=== PATIENT | female | born 1960 | race Caucasian/White ===

== ENCOUNTER 2018-08-23 17:46 | Observation (INO) ==
[2018-08-23] MEDS ORDERED: 0.9 % Sodium Chloride 1,000 ML IVC ONE (18:03)
--- NOTE | 2018-08-23 18:05 | Emergency Department Note ---
Disposition Clinical Impression: Confusion Pneumonia Qualifiers: Pneumonia type: due to unspecified organism Laterality: right Lung location: u pper lobe of lung Qualified Code(s): J18.1 - Lobar pneumonia, unspecified o rganism Disposition: Still a Patient Condition: Fair Referrals: Jonathan Sam CNP [Primary Care Provider] - Forms: ED Satisfaction Letter Time of Disposition: 20:06 General Adult HPI - General Chief complaint: ED Fall Stated complaint: fall Time Seen by Provider: 08/23/18 17:51 Source: patient, EMS Mode of arrival: EMS Limitations: altered mental status Nursing Notes Reviewed: Yes Vital Signs Reviewed: Yes - History of Present Illness HPI Narrative: Patient is a 58-year-old female who is presenting with altered mental status via EMS. Patient with known history of psychiatric illness and multiple psychiatric medications. On initial evaluation, per EMS a neighbor called the squad when patient reported questionable fall yesterday that was unwitnessed. Patient neighbor then found the patient altered and confused. Patient is unable to provide any history of present illness. She is responding however provides and appropriate responses to questioning. She currently denies any pain. While in the room she makes multiple remarks that the devil is inside of her and that she is having pain all over because the devil is causing her pain. She denies any chest pain or fever or recent illness. She does not know if she has taken any of her medications. She does not recall the fall or any events prior to today. She is alert currently to person and time, she is unaware place. - Related Data Home Medications Medication Instructions Recorded Confirmed Buspirone HCl [Buspar] 15 mg PO TID 07/08/16 08/23/18 Levothyroxine [Synthroid] [place] [address]/08/16 08/23/18 Omeprazole [PriLOSEC] 40 mg PO DAILY 07/08/16 08/23/18 Pravastatin Sodium [Pravachol] 20 mg PO HS 07/08/16 08/23/18 Quetiapine Fumarate [Seroquel] 400 mg PO HS 07/30/18 08/23/18 Tamsulosin HCl [Flomax] 0.4 mg PO DAILY 07/30/18 08/23/18 Venlafaxine [Effexor] 37.5 mg PO TID 07/30/18 08/23/18 clonazePAM [Klonopin] 1 tab PO BID 07/30/18 08/23/18 hydrOXYzine HCl [Hydroxyzine HCl] 50 mg PO TID PRN #0 07/30/18 08/23/18 Prazosin HCl [Minipress] 4 mg PO HS 08/23/18 08/23/18 Topiramate [Topamax] 50 mg PO BID 08/23/18 08/23/18 Previous Rx's Medication Instructions Recorded Ibuprofen [Motrin] 600 mg PO Q8HR #20 tab 07/30/18 Allergies Allergy/AdvReac Type Severity Reaction Status Date / Time haloperidol [From Haldol] Allergy Hives Verified 07/08/16 13:29 All systems ED: reviewed and negative except as stated. Review of Systems: As Per HPI Limitations: ROS unobtainable due to patients medical condition Past Medical History - Past Medical History Medical history: Reports: asthma, COPD, GERD, thyroid disease, TIA, other Surgical history: Reports: cholecystectomy, hysterectomy Psychiatric history: Reports: anxiety, bipolar, depression - Social History Smoking Status: Former smoker Smokeless Tobacco Status: No Alcohol use: Reports: none Drug use: Reports: none Physical Exam - General Limitations: altered mental status General appearance: alert, anxious - Head Head exam: atraumatic, normocephalic - Eye Eye exam: Present: PERRL, EOMI - ENT ENT exam: mucous membranes dry - Neck Neck exam: Present: normal inspection - Chest Chest inspection: Present: normal inspection, symmetric chest wall rise - Respiratory Respiratory exam: Present: normal lung sounds bilaterally - Cardiovascular Cardiovascular exam: Present: regular rate, normal rhythm, normal heart sounds - Abdominal Exam Abdominal exam: Present: soft, Non-Tender. Absent: tenderness, distention, guarding, rebound, rigidity - Neurological Exam Neurological exam: Present: alert - Expanded Neurological Exam Patient oriented to: Present: person, time. Absent: place Speech: Present: fluid speech Cranial nerves: facial sensation (V): Normal, facial palsy (VII): Normal Motor strength - LUE: 5/5 Motor strength - RUE: 5/5 Motor strength - LLE: 5/5 Motor strength - RLE: 5/5 Other motor function: Patient was also 4 extremities, however is difficult to follow examination, she states that the devil is moving her limbs Sensory exam upper extremity: light touch: Normal Sensory exam lower extremity: light touch: Normal Coma Scale Eye Opening: Spontaneous Coma Scale Motor Response: Obeys Commands Coma Scale Verbal Response: Inappropriate Coma Scale Total: 13 - Psychiatric Psychiatric exam: Present: agitated, anxious. Absent: homicidal ideation, suicidal ideation - Skin Skin exam: Present: warm, dry, intact, normal color. Absent: rash, diaphoresis Course Vital Signs Temperature 98.6 F 08/23/18 17:55 Pulse Rate 89 08/23/18 17:55 Respiratory Rate 16 08/23/18 17:55 Blood Pressure 124/80 08/23/18 17:55 O2 Sat by Pulse Oximetry 90 08/23/18 17:55 Temperature 98.6 F 08/23/18 17:55 Pulse Rate 101 08/23/18 18:46 Respiratory Rate 18 08/23/18 18:46 Blood Pressure 120/69 08/23/18 18:46 O2 Sat by Pulse Oximetry 98 08/23/18 18:46 Oxygen Delivery Oxygen Delivery Nasal Cannula Medical Decision Making - MDM Narrative Medical decision making narrative: Patient is a 58-year-old female presenting via EMS for altered mental status. On arrival, patient is a anxious with pressured speech but conversant, however responses are inappropriate and there is clear confusion, patient does not recall the events that brought her here today, per EMS neighbors called for reported unwitnessed fall that occurred yesterday. Patient with multiple psychiatric illnesses, on multiple psychiatric medications, patient in the room currently states devil is inside me". There is no obvious trauma on examination, no cervical tenderness, thoracic or lumbar tenderness, pelvis is stable, patient is a GCS of 13, and age of 0, patient was also ordered extremities, although difficult to perform neurological examination, this is able to be done with patience. Patient is unaware of why she is here currently, not able to contribute to further history. Patient's vitals are within normal limits on arrival. Given concern for altered mental status with unknown baseline history or mentation, altered mental status workup will be completed including CBC, BMP, urinalysis, chest x-ray, troponin, urine drug screen, lactic acid, blood cultures, ammonia. CT the head is to be performed. Patient was also given 1 L normal saline bolus as well as Ativan on arrival due being anxious. CBC, BMP relatively unremarkable. EKG shows no acute ischemic changes. CT of the head shows continued encephalomalacia, in the frontal region, this would explain aggressive behavior, no acute findings were noted, they do request further MRI stroke is suspected. Chest x-ray does show questionable opacification, as patient's history is unknown, we will go ahead and start the patient on Levaquin at this time. Blood cultures have been drawn, lactic acid is also been drawn. On reevaluation, patient is currently calm, sleeping, she is unable to provide further history however at this point in time is more comfortable. Anticipate this patient will be admitted for altered mental status workup, however at this point in time the patient has been signed out to Dr. Jennifer De La Cruz and Dr. Christian Carr. At time of sign off, patient currently has troponin and urinalysis, UDS pending. Please refer to these physicians MDM for further workup and disposition. - Medical Records Medical records reviewed: Yes I reviewed the patient's medical records. - Lab Data Lab results reviewed: Yes I reviewed the patient's lab results. Result diagrams: 08/23/18 18:40 08/23/18 18:40 Lab Results 08/23/18 08/23/18 08/23/18 Range/Units 18:40 18:40 18:40 WBC 6.3 (4.3-11.1) K/mcL RBC 4.34 (3.82-4.97) M/mcL Hgb 12.3 (11.5-15.4) g/dL Hct 38.4 (35.3-44.9) % MCV 88.5 (83.0-100.0) fL MCH 28.3 (28.0-33.3) pg MCHC 32.0 (31.6-35.5) g/dL RDW 13.2 (11.5-14.5) % Plt Count 256 (140-400) K/mcL MPV 9.6 (9.4-12.4) fL Immature Gran % 0.2 (0-4) % Seg Neutrophils % 56.1 % Lymphocytes % 31.7 % Monocytes % 8.7 % Eosinophils % 2.2 % Basophils % 1.1 % Neutrophils # 3.5 (1.6-8.9) K/mcL Lymphocytes # 2.0 (0.6-4.6) K/mcL Monocytes # 0.6 (0.0-1.3) K/mcL Eosinophils # 0.1 (0.0-0.6) K/mcL Basophils # 0.1 (0.0-0.2) K/mcL PT 12.4 H (9.4-12.1) Seconds INR 1.1 APTT 35.4 (26.0-36.0) Seconds Sodium 143 (136-145) mEq/L Potassium 3.4 L (3.5-5.1) mEq/L Chloride 105 (98-107) mEq/L Carbon Dioxide 26 (23-29) mEq/L BUN 13 (6-20) mg/dL Glucose 95 (70-105) mg/dL Calculated Osmolality 296 (280-300) Calcium 9.9 (8.6-10.3) mg/dL Total Bilirubin 0.5 (0.3-1.0) mg/dL Direct Bilirubin 0.2 (0.0-0.2) mg/dL Indirect Bilirubin 0.3 (0.0-1.2) mg/dL AST 14 (13-39) Units/L ALT 25 (7-52) Units/L Alkaline Phosphatase 111 H (34-104) Units/L Ammonia (16-53) mcmol/L Troponin I < 0.03 (< 0.04) ng/mL Serum Total Protein 7.1 (6.4-8.9) g/dL Albumin 4.4 (3.5-5.7) g/dL Globulin 2.7 (2.4-3.5) g/dL Albumin/Globulin Ratio 1.6 (1.1-2.2) TSH 3.926 (0.340-5.600) mcIU/mL Ethyl Alcohol < 10 (Less than 10) mg/dL 08/23/18 Range/Units 18:40 WBC (4.3-11.1) K/mcL RBC (3.82-4.97) M/mcL Hgb (11.5-15.4) g/dL Hct (35.3-44.9) % MCV (83.0-100.0) fL MCH (28.0-33.3) pg MCHC (31.6-35.5) g/dL RDW (11.5-14.5) % Plt Count (140-400) K/mcL MPV (9.4-12.4) fL Immature Gran % (0-4) % Seg Neutrophils % % Lymphocytes % % Monocytes % % Eosinophils % % Basophils % % Neutrophils # (1.6-8.9) K/mcL Lymphocytes # (0.6-4.6) K/mcL Monocytes # (0.0-1.3) K/mcL Eosinophils # (0.0-0.6) K/mcL Basophils # (0.0-0.2) K/mcL PT (9.4-12.1) Seconds INR APTT (26.0-36.0) Seconds Sodium (136-145) mEq/L Potassium (3.5-5.1) mEq/L Chloride (98-107) mEq/L Carbon Dioxide (23-29) mEq/L BUN (6-20) mg/dL Glucose (70-105) mg/dL Calculated Osmolality (280-300) Calcium (8.6-10.3) mg/dL Total Bilirubin (0.3-1.0) mg/dL Direct Bilirubin (0.0-0.2) mg/dL Indirect Bilirubin (0.0-1.2) mg/dL AST (13-39) Units/L ALT (7-52) Units/L Alkaline Phosphatase (34-104) Units/L Ammonia 40 (16-53) mcmol/L Troponin I (< 0.04) ng/mL Serum Total Protein (6.4-8.9) g/dL Albumin (3.5-5.7) g/dL Globulin (2.4-3.5) g/dL Albumin/Globulin Ratio (1.1-2.2) TSH (0.340-5.600) mcIU/mL Ethyl Alcohol (Less than 10) mg/dL - Radiology Data Radiology results reviewed: Yes I reviewed the patient's radiology results. Chest X-Ray 08/23/18 18:03 IMPRESSION: Upper lobe predominant interstitial opacities could represent interstitial pneumonia or edema. D/ / Sunny Dhaliwal MD / Sunny Dhaliwal MD Interpreting Provider: Sunny Dhaliwal MD Head CT 08/23/18 18:03 IMPRESSION: Focal hypodensity in the left frontal lobe may represent encephalomalacia given the history of prior infarct. MRI would be more sensitive to detect acute infarct. D/ / Sunny Dhaliwal MD / Sunny Dhaliwal MD Interpreting Provider: Sunny Dhaliwal MD - EKG Data EKG #1 EKG attestation: Yes I reviewed and interpreted this EKG. EKG results narrative: EKG performed on arrival, patient is a rate of 89 bpm, regular rhythm, normal axis, no ST segment elevation or depression. QTC is within normal limits. Attestation Statement - Attestation Attestation: I, Blaise Melendrez DO, examined this patient [id number] and my medical decision-making was reviewed with Dr. Kulwant Garcia , Resident Physician. I agree with the documented findings, disposition and treatment plan as described except to the extent set forth below. I personally supervised and was present for the amador/critical portions of the procedures completed by the resident documented below. Please see my progress notes for details.
[2018-08-23] MEDS: *HR* LORazepam 2 MG/ML VIAL IVP ONE ×2 (18:44→20:32)
[2018-08-23 19:03] LABS: Basophils # 0.1 K/mcL (0.0-0.2); Basophils % 1.1 %; Eosinophils # 0.1 K/mcL (0.0-0.6); Eosinophils % 2.2 %; Hematocrit 38.4 % (35.3-44.9); Hemoglobin 12.3 g/dL (11.5-15.4); Immature Granulocytes % 0.2 % (0-4); Lymphocytes % 31.7 %; Mean Corpuscular Hemoglobin 28.3 pg (28.0-33.3); Mean Corpuscular Volume 88.5 fL (83.0-100.0); Mean Platelet Volume 9.6 fL (9.4-12.4); Monocytes # 0.6 K/mcL (0.0-1.3); Monocytes % 8.7 %; Neutrophils # 3.5 K/mcL (1.6-8.9); Platelet Count 256 K/mcL (140-400); Red Blood Count 4.34 M/mcL (3.82-4.97); Red Cell Distribution Width 13.2 % (11.5-14.5); Segmented Neutrophils % 56.1 %; White Blood Count 6.3 K/mcL (4.3-11.1)
[2018-08-23 19:12] LABS: INR 1.1; Prothrombin Time 12.4 Seconds (9.4-12.1)
[2018-08-23 19:15] LABS: Activated Partial Thrombo Time 35.4 Seconds (26.0-36.0)
--- NOTE | 2018-08-23 19:21 | Emergency Department Note ---
Disposition Clinical Impression: Confusion, Pneumonia Disposition: Still a Patient Condition: Fair Referrals: Jonathan Sam BUILDING CONSTRUCTION INSPECTOR [Primary Care Provider] - Forms: ED Satisfaction Letter Time of Disposition: 19:24 General Adult HPI - General Chief complaint: ED Fall Stated complaint: fall Time Seen by Provider: 08/23/18 17:51 Source: EMS Limitations: no limitations - History of Present Illness Pain Scale: 5 - Related Data Home Medications Medication Instructions Recorded Confirmed Buspirone HCl [Buspar] 15 mg PO BID 07/08/16 07/30/18 Fluticasone/Vilanterol [Breo 1 puff IH DAILY 07/08/16 07/30/18 Ellipta 200-25 Mcg INH] Levothyroxine [[place]throid] [place] [address]/08/16 07/30/18 Omeprazole [PriLOSEC] 40 mg PO DAILY 07/08/16 07/30/18 Pravastatin Sodium [Pravachol] 20 mg PO HS 07/08/16 07/30/18 hydrOXYzine HCl [Hydroxyzine HCl] 50 mg PO Q6H PRN 07/08/16 07/30/18 Atarax 50 mg PO TID 07/30/18 07/30/18 Prazosin [Minipress] 2 mg PO HS 07/30/18 07/30/18 Quetiapine Fumarate [Seroquel] 1 tab PO HS 07/30/18 07/30/18 Tamsulosin HCl [Flomax] 0.4 mg PO DAILY 07/30/18 07/30/18 Venlafaxine [Effexor] 37.5 mg PO DAILY 07/30/18 07/30/18 clonazePAM [Klonopin] 1 tab PO BID 07/30/18 07/30/18 Previous Rx's Medication Instructions Recorded Ibuprofen [Motrin] 600 mg PO Q8HR #20 tab 07/30/18 Allergies Allergy/AdvReac Type Severity Reaction Status Date / Time haloperidol [From Haldol] Allergy Hives Verified 07/08/16 13:29 Past Medical History - Past Medical History Medical history: Reports: asthma, COPD, GERD, thyroid disease, TIA, other Surgical history: Reports: cholecystectomy, hysterectomy Psychiatric history: Reports: anxiety, bipolar, depression - Social History Smoking Status: Former smoker Smokeless Tobacco Status: No Alcohol use: Reports: none Drug use: Reports: none Physical Exam - General Limitations: no limitations General appearance: anxious Course Vital Signs Temperature 98.6 F 08/23/18 17:55 Pulse Rate 89 08/23/18 17:55 Respiratory Rate 16 08/23/18 17:55 Blood Pressure 124/80 08/23/18 17:55 O2 Sat by Pulse Oximetry 90 08/23/18 17:55 Temperature 98.6 F 08/23/18 17:55 Pulse Rate 101 08/23/18 18:46 Respiratory Rate 18 08/23/18 18:46 Blood Pressure 120/69 08/23/18 18:46 O2 Sat by Pulse Oximetry 98 08/23/18 18:46 Oxygen Delivery Oxygen Delivery Nasal Cannula Medical Decision Making - Lab Data Result diagrams: 08/23/18 18:40 Lab Results 08/23/18 08/23/18 08/23/18 Range/Units 18:40 18:40 18:40 WBC 6.3 (4.3-11.1) K/mcL RBC 4.34 (3.82-4.97) M/mcL Hgb 12.3 (11.5-15.4) g/dL Hct 38.4 (35.3-44.9) % MCV 88.5 (83.0-100.0) fL MCH 28.3 (28.0-33.3) pg MCHC 32.0 (31.6-35.5) g/dL RDW 13.2 (11.5-14.5) % Plt Count 256 (140-400) K/mcL MPV 9.6 (9.4-12.4) fL Immature Gran % 0.2 (0-4) % Seg Neutrophils % 56.1 % Lymphocytes % 31.7 % Monocytes % 8.7 % Eosinophils % 2.2 % Basophils % 1.1 % Neutrophils # 3.5 (1.6-8.9) K/mcL Lymphocytes # 2.0 (0.6-4.6) K/mcL Monocytes # 0.6 (0.0-1.3) K/mcL Eosinophils # 0.1 (0.0-0.6) K/mcL Basophils # 0.1 (0.0-0.2) K/mcL PT 12.4 H (9.4-12.1) Seconds INR 1.1 APTT 35.4 (26.0-36.0) Seconds Ammonia 40 (16-53) mcmol/L Attestation Statement - Attestation Attestation: I, Blaise Melendrez DO, examined this patient [id number] and my medical decision-making was reviewed with Dr. Kulwant Garcia , Resident Physician. I agree with the documented findings, disposition and treatment plan as described except to the extent set forth below. I personally supervised and was present for the amador/critical portions of the procedures completed by the resident documented below. Please see my progress notes for details. 58-year-old female presents emergency room for evaluation of some aspect of the fall. Patient has a psychiatric history and has not been taking her meds. A third green party family member called the squad bring out to the emergency room. Patient is unable to answer questions on arrival here. She is confused and not able to fall simple commands. She does not state it is and what year it is but otherwise is unable to answer questions appropriately. Vital signs reviewed and are stable. Patient is denying any other complaints or symptoms on arrival here. Her head is atraumatic. Pupils are equal and reactive. Oropharynx is patent. Trachea is midline. She has no signs of trauma to the head. Oropharynx is patent. Lungs are clear. Heart is regular. Abdomen is soft. Extremities are normal no signs of rash, lesion or abnormality. Patient is denying any complaints including chest pain shortness of breath fevers chills. She denies any nausea vomiting or diarrhea. She does not have any headache or vision change. Patient was provided medication to help with her anxiety and distress. Screening labs including CT imaging of the head chest x-ray CBC chemistry troponin electrolytes drug screen for potential drugs of abuse as well as EKG will be collected. Disposition will be determined after full workup and treatment course I been established. Patient will be signed out to the overnight physician for continuation of care secondary to the inability to complete the full workup at this time. EKG was reviewed by myself and documented resident physician's note. See detailed documentation the physical exam, medical intervention, medical decision-making and disposition in the resident physician's documentation. No critical care applied. Patient will be signed out detail to Dr. Carr for stabilization management and potential admission. 1900 Patient is found to have potential pneumonia. Patient had blood cultures lactic acid and antibiotics ordered. Management will be completed by other provider.
[2018-08-23] MEDS ORDERED: levoFLOXacin 750 MG/150 ML 750 MG/150 ML BAG IVPB ONE (19:25)
[2018-08-23 19:26] LABS: Alanine Aminotransferase 25 Units/L (7-52); Albumin 4.4 g/dL (3.5-5.7); Albumin/Globulin Ratio 1.6 (1.1-2.2); Alkaline Phosphatase 111 Units/L (34-104); Aspartate Amino Transferase 14 Units/L (13-39); Bilirubin,Direct 0.2 mg/dL (0.0-0.2); Bilirubin,Indirect 0.3 mg/dL (0.0-1.2); Bilirubin,Total 0.5 mg/dL (0.3-1.0); Blood Urea Nitrogen 13 mg/dL (6-20); Calcium 9.9 mg/dL (8.6-10.3); Carbon Dioxide 26 mEq/L (23-29); Chloride 105 mEq/L (98-107); Ethanol < 10 mg/dL (Less than 10); Globulin 2.7 g/dL (2.4-3.5); Glucose 95 mg/dL (70-105); Osmolality,Calculated 296 (280-300); Potassium 3.4 mEq/L (3.5-5.1); Sodium 143 mEq/L (136-145); Total Protein 7.1 g/dL (6.4-8.9); Troponin I < 0.03 ng/mL (< 0.04)
[2018-08-23 19:40] LABS: Thyroid Stimulating Hormone 3.926 mcIU/mL (0.340-5.600)
--- NOTE | 2018-08-23 19:43 | Emergency Department Note ---
Disposition Clinical Impression: Confusion Pneumonia Qualifiers: Pneumonia type: due to unspecified organism Laterality: right Lung location: u pper lobe of lung Qualified Code(s): J18.1 - Lobar pneumonia, unspecified o rganism Disposition: Still a Patient Condition: Fair Referrals: Jonathan Sam SALES LEDGER ADMINISTRATOR [Primary Care Provider] - Forms: ED Satisfaction Letter Time of Disposition: 19:43 General Adult HPI - General Chief complaint: ED Fall Stated complaint: fall Time Seen by Provider: 08/23/18 17:51 Source: EMS Limitations: altered mental status Nursing Notes Reviewed: Yes Vital Signs Reviewed: Yes - History of Present Illness HPI Narrative: Attestation note: Patient was seen with the emergency medicine resident/nurse practitioner/physician assistant corporate controller/transitional resident/medical student: Dr. Ashly De La Cruz. I was present for the significant portions of the performance and interpretation of procedures and EKGs. I have personally performed a face to face evaluation on this patient. I have reviewed and agree with history and physical examination patient management and disposition. Patient was signed out by the departing emergency medicine attending and resident team of Dr. Melendrez and Dr. Garcia. Please see copy their notes for details of the history and physical examination examination evaluation management and disposition to the point of sign out at 1942. Briefly patient has a psychiatric disorder is unable to give any history fell EMS was called by third-alliance party she was brought in unable to answer any questions definitively no external signs of trauma no localizing signs patient had a head CT which showed encephalomalacia which is old chest x-ray was stress pneumonia which is being treated patient labs are within baseline are within normal limits. Waiting for urine drug screen and screening labs. Patient will be admitted. Admission disposition pending Pain Scale: 5 - Related Data Home Medications Medication Instructions Recorded Confirmed Buspirone HCl [Buspar] 15 mg PO BID 07/08/16 08/23/18 Fluticasone/Vilanterol [Breo 1 puff IH DAILY 07/08/16 08/23/18 Ellipta 200-25 Mcg INH] Levothyroxine [[place]th[place]] [place] [address]/08/16 08/23/18 Omeprazole [PriLOSEC] 40 mg PO DAILY 07/08/16 08/23/18 Pravastatin Sodium [Pravachol] 20 mg PO HS 07/08/16 08/23/18 hydrOXYzine HCl [Hydroxyzine HCl] 50 mg PO Q6H PRN 07/08/16 08/23/18 Atarax 50 mg PO TID 07/30/18 08/23/18 Prazosin [Minipress] 2 mg PO HS 07/30/18 08/23/18 Quetiapine Fumarate [Seroquel] 1 tab PO HS 07/30/18 08/23/18 Tamsulosin HCl [Flomax] 0.4 mg PO DAILY 07/30/18 08/23/18 Venlafaxine [Effexor] 37.5 mg PO DAILY 07/30/18 08/23/18 clonazePAM [Klonopin] 1 tab PO BID 07/30/18 08/23/18 Topiramate 50 mg PO BID 08/23/18 08/23/18 Previous Rx's Medication Instructions Recorded Ibuprofen [Motrin] 600 mg PO Q8HR #20 tab 07/30/18 Allergies Allergy/AdvReac Type Severity Reaction Status Date / Time haloperidol [From Haldol] Allergy Hives Verified 07/08/16 13:29 Past Medical History - Past Medical History Medical history: Reports: asthma, COPD, GERD, thyroid disease, TIA, other Surgical history: Reports: cholecystectomy, hysterectomy Psychiatric history: Reports: anxiety, bipolar, depression - Social History Smoking Status: Former smoker Smokeless Tobacco Status: No Alcohol use: Reports: none Drug use: Reports: none Physical Exam - General Limitations: no limitations General appearance: anxious Course Vital Signs Temperature 98.6 F 08/23/18 17:55 Pulse Rate 89 08/23/18 17:55 Respiratory Rate 16 08/23/18 17:55 Blood Pressure 124/80 08/23/18 17:55 O2 Sat by Pulse Oximetry 90 08/23/18 17:55 Temperature 98.6 F 08/23/18 17:55 Pulse Rate 101 08/23/18 18:46 Respiratory Rate 18 08/23/18 18:46 Blood Pressure 120/69 08/23/18 18:46 O2 Sat by Pulse Oximetry 98 08/23/18 18:46 Oxygen Delivery Oxygen Delivery Nasal Cannula Medical Decision Making - Lab Data Result diagrams: 08/23/18 18:40 08/23/18 18:40 Lab Results 08/23/18 08/23/18 08/23/18 Range/Units 18:40 18:40 18:40 WBC 6.3 (4.3-11.1) K/mcL RBC 4.34 (3.82-4.97) M/mcL Hgb 12.3 (11.5-15.4) g/dL Hct 38.4 (35.3-44.9) % MCV 88.5 (83.0-100.0) fL MCH 28.3 (28.0-33.3) pg MCHC 32.0 (31.6-35.5) g/dL RDW 13.2 (11.5-14.5) % Plt Count 256 (140-400) K/mcL MPV 9.6 (9.4-12.4) fL Immature Gran % 0.2 (0-4) % Seg Neutrophils % 56.1 % Lymphocytes % 31.7 % Monocytes % 8.7 % Eosinophils % 2.2 % Basophils % 1.1 % Neutrophils # 3.5 (1.6-8.9) K/mcL Lymphocytes # 2.0 (0.6-4.6) K/mcL Monocytes # 0.6 (0.0-1.3) K/mcL Eosinophils # 0.1 (0.0-0.6) K/mcL Basophils # 0.1 (0.0-0.2) K/mcL PT 12.4 H (9.4-12.1) Seconds INR 1.1 APTT 35.4 (26.0-36.0) Seconds Sodium 143 (136-145) mEq/L Potassium 3.4 L (3.5-5.1) mEq/L Chloride 105 (98-107) mEq/L Carbon Dioxide 26 (23-29) mEq/L BUN 13 (6-20) mg/dL Glucose 95 (70-105) mg/dL Calculated Osmolality 296 (280-300) Calcium 9.9 (8.6-10.3) mg/dL Total Bilirubin 0.5 (0.3-1.0) mg/dL Direct Bilirubin 0.2 (0.0-0.2) mg/dL Indirect Bilirubin 0.3 (0.0-1.2) mg/dL AST 14 (13-39) Units/L ALT 25 (7-52) Units/L Alkaline Phosphatase 111 H (34-104) Units/L Ammonia (16-53) mcmol/L Troponin I < 0.03 (< 0.04) ng/mL Serum Total Protein 7.1 (6.4-8.9) g/dL Albumin 4.4 (3.5-5.7) g/dL Globulin 2.7 (2.4-3.5) g/dL Albumin/Globulin Ratio 1.6 (1.1-2.2) TSH 3.926 (0.340-5.600) mcIU/mL Ethyl Alcohol < 10 (Less than 10) mg/dL 08/23/18 Range/Units 18:40 WBC (4.3-11.1) K/mcL RBC (3.82-4.97) M/mcL Hgb (11.5-15.4) g/dL Hct (35.3-44.9) % MCV (83.0-100.0) fL MCH (28.0-33.3) pg MCHC (31.6-35.5) g/dL RDW (11.5-14.5) % Plt Count (140-400) K/mcL MPV (9.4-12.4) fL Immature Gran % (0-4) % Seg Neutrophils % % Lymphocytes % % Monocytes % % Eosinophils % % Basophils % % Neutrophils # (1.6-8.9) K/mcL Lymphocytes # (0.6-4.6) K/mcL Monocytes # (0.0-1.3) K/mcL Eosinophils # (0.0-0.6) K/mcL Basophils # (0.0-0.2) K/mcL PT (9.4-12.1) Seconds INR APTT (26.0-36.0) Seconds Sodium (136-145) mEq/L Potassium (3.5-5.1) mEq/L Chloride (98-107) mEq/L Carbon Dioxide (23-29) mEq/L BUN (6-20) mg/dL Glucose (70-105) mg/dL Calculated Osmolality (280-300) Calcium (8.6-10.3) mg/dL Total Bilirubin (0.3-1.0) mg/dL Direct Bilirubin (0.0-0.2) mg/dL Indirect Bilirubin (0.0-1.2) mg/dL AST (13-39) Units/L ALT (7-52) Units/L Alkaline Phosphatase (34-104) Units/L Ammonia 40 (16-53) mcmol/L Troponin I (< 0.04) ng/mL Serum Total Protein (6.4-8.9) g/dL Albumin (3.5-5.7) g/dL Globulin (2.4-3.5) g/dL Albumin/Globulin Ratio (1.1-2.2) TSH (0.340-5.600) mcIU/mL Ethyl Alcohol (Less than 10) mg/dL
--- NOTE | 2018-08-23 19:43 | Emergency Department Note ---
Disposition Clinical Impression: Confusion Pneumonia Qualifiers: Pneumonia type: due to unspecified organism Laterality: right Lung location: u pper lobe of lung Qualified Code(s): J18.1 - Lobar pneumonia, unspecified o rganism Disposition: Admitted As Inpatient Condition: Fair Referrals: Jonathan Sam [employer] [Primary Care Provider] - Forms: ED Satisfaction Letter Time of Disposition: 21:02 General Adult HPI - General Chief complaint: ED Fall Stated complaint: fall Time Seen by Provider: 08/23/18 17:51 Source: EMS Limitations: no limitations Nursing Notes Reviewed: Yes Vital Signs Reviewed: Yes - History of Present Illness HPI Narrative: Patient was taken in signout from day physicians, Drs. Garcia and Aneesh. Please see their detailed documentation for full history of present illness, physical exam, review of systems. Ensure the patient is a 58-year-old female with history of multiple psychiatric disorders who was sent for IM home by a third libertarian due to altered mental status and reported fall. Pain Scale: 5 - Related Data Home Medications Medication Instructions Recorded Confirmed Buspirone HCl [Buspar] 15 mg PO TID 07/08/16 08/23/18 Levothyroxine [Synthroid] 50 mcg PO 0630 07/08/16 08/23/18 Omeprazole [PriLOSEC] 40 mg PO DAILY 07/08/16 08/23/18 Pravastatin Sodium [Pravachol] 20 mg PO HS 07/08/16 08/23/18 Quetiapine Fumarate [Seroquel] 400 mg PO HS 07/30/18 08/23/18 Tamsulosin HCl [Flomax] 0.4 mg PO DAILY 07/30/18 08/23/18 Venlafaxine [Effexor] 37.5 mg PO TID 07/30/18 08/23/18 clonazePAM [Klonopin] 1 tab PO BID 07/30/18 08/23/18 hydrOXYzine HCl [Hydroxyzine HCl] 50 mg PO TID PRN #0 07/30/18 08/23/18 Prazosin HCl [Minipress] 4 mg PO HS 08/23/18 08/23/18 Topiramate [Topamax] 50 mg PO BID 08/23/18 08/23/18 Previous Rx's Medication Instructions Recorded Ibuprofen [Motrin] 600 mg PO Q8HR #20 tab 07/30/18 Allergies Allergy/AdvReac Type Severity Reaction Status Date / Time haloperidol [From Haldol] Allergy Hives Verified 07/08/16 13:29 Past Medical History - Past Medical History Medical history: Reports: asthma, COPD, GERD, thyroid disease, TIA, other Surgical history: Reports: cholecystectomy, hysterectomy Psychiatric history: Reports: anxiety, bipolar, depression - Social History Smoking Status: Former smoker Smokeless Tobacco Status: No Alcohol use: Reports: none Drug use: Reports: none Physical Exam - General Limitations: no limitations General appearance: anxious, other (intermittent tongue movements) - Head Head exam: atraumatic, normocephalic - Neurological Exam Neurological exam: Present: alert - Expanded Neurological Exam Speech: Present: fluid speech (tangential, not goal oriented) - Psychiatric Psychiatric exam: Present: anxious, flat affect Course - Reevaluation(s) Reevaluation #1: Patient evaluated at bedside. The patient has linear speech but is tangential and is not goal oriented. She complains of no areas of pain at this time. She is alert and cooperative. Time: 20:26 Vital Signs Temperature 98.6 F 08/23/18 17:55 Pulse Rate 89 08/23/18 17:55 Respiratory Rate 16 08/23/18 17:55 Blood Pressure 124/80 08/23/18 17:55 O2 Sat by Pulse Oximetry 90 08/23/18 17:55 Temperature 98.6 F 08/23/18 17:55 Pulse Rate 91 08/23/18 20:39 Respiratory Rate 21 08/23/18 20:39 Blood Pressure 99/74 08/23/18 20:39 O2 Sat by Pulse Oximetry 100 08/23/18 20:39 Oxygen Delivery Oxygen Delivery Nasal Cannula Medical Decision Making - MDM Narrative Medical decision making narrative: 58-year-old female taken in sign out from day time physicians, please see their documentation for MDM prior to signout. I short, the patient had a unwitnessed fall and was brought to the emergency department via EMS per the neighbor's report. She has no focal deficits but her speech is tangential and not goal oriented. She was signed out pending results of her urinalysis, urine drug screen, lactate. Patient has no urinary tract infection. Her urine drug screen is negative. Patient is intermittently agitated and gets up and moves around out of bed and she has therefore had a repeat dose of Ativan. Discussed case with on-call hospitalist Dr. Zafar who agrees with plan for admission and accepts the patient to the inpatient service. Patient agrees with and understands course of treatment plan including plan for admission. All questions answered. - Medical Records Medical records reviewed: Yes I reviewed the patient's medical records. - Lab Data Lab results reviewed: Yes I reviewed the patient's lab results. Result diagrams: 08/23/18 18:40 08/23/18 18:40 Lab Results 08/23/18 08/23/18 08/23/18 Range/Units 18:40 18:40 18:40 WBC 6.3 (4.3-11.1) K/mcL RBC 4.34 (3.82-4.97) M/mcL Hgb 12.3 (11.5-15.4) g/dL Hct 38.4 (35.3-44.9) % MCV 88.5 (83.0-100.0) fL MCH 28.3 (28.0-33.3) pg MCHC 32.0 (31.6-35.5) g/dL RDW 13.2 (11.5-14.5) % Plt Count 256 (140-400) K/mcL MPV 9.6 (9.4-12.4) fL Immature Gran % 0.2 (0-4) % Seg Neutrophils % 56.1 % Lymphocytes % 31.7 % Monocytes % 8.7 % Eosinophils % 2.2 % Basophils % 1.1 % Neutrophils # 3.5 (1.6-8.9) K/mcL Lymphocytes # 2.0 (0.6-4.6) K/mcL Monocytes # 0.6 (0.0-1.3) K/mcL Eosinophils # 0.1 (0.0-0.6) K/mcL Basophils # 0.1 (0.0-0.2) K/mcL PT 12.4 H (9.4-12.1) Seconds INR 1.1 APTT 35.4 (26.0-36.0) Seconds Sodium 143 (136-145) mEq/L Potassium 3.4 L (3.5-5.1) mEq/L Chloride 105 (98-107) mEq/L Carbon Dioxide 26 (23-29) mEq/L BUN 13 (6-20) mg/dL Creatinine 0.95 (0.60-1.20) mg/dL Est GFR ( Amer) > 60 (> 60) Est GFR (Non-Af Amer) > 60 (> 60) BUN/Creatinine Ratio 14 (6-26) Glucose 95 (70-105) mg/dL Calculated Osmolality 296 (280-300) Lactic Acid (0.5-2.2) mmol/L Calcium 9.9 (8.6-10.3) mg/dL Total Bilirubin 0.5 (0.3-1.0) mg/dL Direct Bilirubin 0.2 (0.0-0.2) mg/dL Indirect Bilirubin 0.3 (0.0-1.2) mg/dL AST 14 (13-39) Units/L ALT 25 (7-52) Units/L Alkaline Phosphatase 111 H (34-104) Units/L Ammonia (16-53) mcmol/L Troponin I < 0.03 (< 0.04) ng/mL Serum Total Protein 7.1 (6.4-8.9) g/dL Albumin 4.4 (3.5-5.7) g/dL Globulin 2.7 (2.4-3.5) g/dL Albumin/Globulin Ratio 1.6 (1.1-2.2) TSH 3.926 (0.340-5.600) mcIU/mL Urine Color (Yellow) Urine Clarity (Clear) Urine pH (5.0-8.0) pH Units Ur Specific [place] (1.010-1.025) Urine Protein (Neg-Trace) mg/dL Urine Glucose (UA) (Normal) mg/dL Urine Ketones (Negative) mg/dL Urine Blood (Negative) Urine Nitrite (Negative) Urine Bilirubin (Negative) Urine Urobilinogen (Normal) mg/dL Ur Leukocyte Esterase (Negative) Urine Microscopic RBC (0-3) per hpf Urine Microscopic WBC (0-3) per hpf Ur Squamous Epith Cells (None-Few) per lpf Urine Bacteria (None-Few) per hpf Hyaline Casts (None-Few) per lpf Ur Culture Indicated? (NO) Urine Opiates Screen (Wsofld=395) ng/mL Ur Barbiturates Screen (Znqqgj=062) ng/mL Ur Phencyclidine Scrn (Cutoff=25) ng/mL Ur Amphetamines Screen (Bhgadb=6395) ng/mL U Benzodiazepines Scrn (Xhljoe=308) ng/mL Urine Cocaine Screen (Cutoff= 300) ng/mL U Marijuana (THC) Screen (Cutoff = 50) ng/mL Ur Drug Screen Interp Ethyl Alcohol < 10 (Less than 10) mg/dL 08/23/18 08/23/18 08/23/18 Range/Units 18:40 19:46 19:53 WBC (4.3-11.1) K/mcL RBC (3.82-4.97) M/mcL Hgb (11.5-15.4) g/dL Hct (35.3-44.9) % MCV (83.0-100.0) fL MCH (28.0-33.3) pg MCHC (31.6-35.5) g/dL RDW (11.5-14.5) % Plt Count (140-400) K/mcL MPV (9.4-12.4) fL Immature Gran % (0-4) % Seg Neutrophils % % Lymphocytes % % Monocytes % % Eosinophils % % Basophils % % Neutrophils # (1.6-8.9) K/mcL Lymphocytes # (0.6-4.6) K/mcL Monocytes # (0.0-1.3) K/mcL Eosinophils # (0.0-0.6) K/mcL Basophils # (0.0-0.2) K/mcL PT (9.4-12.1) Seconds INR APTT (26.0-36.0) Seconds Sodium (136-145) mEq/L Potassium (3.5-5.1) mEq/L Chloride (98-107) mEq/L Carbon Dioxide (23-29) mEq/L BUN (6-20) mg/dL Creatinine (0.60-1.20) mg/dL Est GFR ( Amer) (> 60) Est GFR (Non-Af Amer) (> 60) BUN/Creatinine Ratio (6-26) Glucose (70-105) mg/dL Calculated Osmolality (280-300) Lactic Acid 0.8 (0.5-2.2) mmol/L Calcium (8.6-10.3) mg/dL Total Bilirubin (0.3-1.0) mg/dL Direct Bilirubin (0.0-0.2) mg/dL Indirect Bilirubin (0.0-1.2) mg/dL AST (13-39) Units/L ALT (7-52) Units/L Alkaline Phosphatase (34-104) Units/L Ammonia 40 (16-53) mcmol/L Troponin I (< 0.04) ng/mL Serum Total Protein (6.4-8.9) g/dL Albumin (3.5-5.7) g/dL Globulin (2.4-3.5) g/dL Albumin/Globulin Ratio (1.1-2.2) TSH (0.340-5.600) mcIU/mL Urine Color Yellow (Yellow) Urine Clarity Clear (Clear) Urine pH 5.5 (5.0-8.0) pH Units Ur Specific [place] 1.007 L (1.010-1.025) Urine Protein Negative (Neg-Trace) mg/dL Urine Glucose (UA) Normal (Normal) mg/dL Urine Ketones Negative (Negative) mg/dL Urine Blood Negative (Negative) Urine Nitrite Negative (Negative) Urine Bilirubin Negative (Negative) Urine Urobilinogen Normal (Normal) mg/dL Ur Leukocyte Esterase Trace H (Negative) Urine Microscopic RBC 0-3 (0-3) per hpf Urine Microscopic WBC 0-3 (0-3) per hpf Ur Squamous Epith Cells Many H (None-Few) per lpf Urine Bacteria None Seen (None-Few) per hpf Hyaline Casts Few (None-Few) per lpf Ur Culture Indicated? YES A (NO) Urine Opiates Screen (Ebysib=805) ng/mL Ur Barbiturates Screen (Wrrqen=313) ng/mL Ur Phencyclidine Scrn (Cutoff=25) ng/mL Ur Amphetamines Screen (Ekfdtu=9973) ng/mL U Benzodiazepines Scrn (Vazstk=203) ng/mL Urine Cocaine Screen (Cutoff= 300) ng/mL U Marijuana (THC) Screen (Cutoff = 50) ng/mL Ur Drug Screen Interp Ethyl Alcohol (Less than 10) mg/dL 08/23/18 Range/Units 19:53 WBC (4.3-11.1) K/mcL RBC (3.82-4.97) M/mcL Hgb (11.5-15.4) g/dL Hct (35.3-44.9) % MCV (83.0-100.0) fL MCH (28.0-33.3) pg MCHC (31.6-35.5) g/dL RDW (11.5-14.5) % Plt Count (140-400) K/mcL MPV (9.4-12.4) fL Immature Gran % (0-4) % Seg Neutrophils % % Lymphocytes % % Monocytes % % Eosinophils % % Basophils % % Neutrophils # (1.6-8.9) K/mcL Lymphocytes # (0.6-4.6) K/mcL Monocytes # (0.0-1.3) K/mcL Eosinophils # (0.0-0.6) K/mcL Basophils # (0.0-0.2) K/mcL PT (9.4-12.1) Seconds INR APTT (26.0-36.0) Seconds Sodium (136-145) mEq/L Potassium (3.5-5.1) mEq/L Chloride (98-107) mEq/L Carbon Dioxide (23-29) mEq/L BUN (6-20) mg/dL Creatinine (0.60-1.20) mg/dL Est GFR ( Amer) (> 60) Est GFR (Non-Af Amer) (> 60) BUN/Creatinine Ratio (6-26) Glucose (70-105) mg/dL Calculated Osmolality (280-300) Lactic Acid (0.5-2.2) mmol/L Calcium (8.6-10.3) mg/dL Total Bilirubin (0.3-1.0) mg/dL Direct Bilirubin (0.0-0.2) mg/dL Indirect Bilirubin (0.0-1.2) mg/dL AST (13-39) Units/L ALT (7-52) Units/L Alkaline Phosphatase (34-104) Units/L Ammonia (16-53) mcmol/L Troponin I (< 0.04) ng/mL Serum Total Protein (6.4-8.9) g/dL Albumin (3.5-5.7) g/dL Globulin (2.4-3.5) g/dL Albumin/Globulin Ratio (1.1-2.2) TSH (0.340-5.600) mcIU/mL Urine Color (Yellow) Urine Clarity (Clear) Urine pH (5.0-8.0) pH Units Ur Specific [place] (1.010-1.025) Urine Protein (Neg-Trace) mg/dL Urine Glucose (UA) (Normal) mg/dL Urine Ketones (Negative) mg/dL Urine Blood (Negative) Urine Nitrite (Negative) Urine Bilirubin (Negative) Urine Urobilinogen (Normal) mg/dL Ur Leukocyte Esterase (Negative) Urine Microscopic RBC (0-3) per hpf Urine Microscopic WBC (0-3) per hpf Ur Squamous Epith Cells (None-Few) per lpf Urine Bacteria (None-Few) per hpf Hyaline Casts (None-Few) per lpf Ur Culture Indicated? (NO) Urine Opiates Screen Negative (Hyqboa=224) ng/mL Ur Barbiturates Screen Negative (Pnlcww=377) ng/mL Ur Phencyclidine Scrn Negative (Cutoff=25) ng/mL Ur Amphetamines Screen Negative (Dpewlb=0261) ng/mL U Benzodiazepines Scrn Negative (Jawocc=390) ng/mL Urine Cocaine Screen Negative (Cutoff= 300) ng/mL U Marijuana (THC) Screen Negative (Cutoff = 50) ng/mL Ur Drug Screen Interp See Below Ethyl Alcohol (Less than 10) mg/dL - Radiology Data Radiology results reviewed: Yes I reviewed the patient's radiology results. Chest X-Ray 08/23/18 18:03 IMPRESSION: Upper lobe predominant interstitial opacities could represent interstitial pneumonia or edema. D/ / Sunny Dhaliwal MD / Sunny Dhaliwal MD Interpreting Provider: Sunny Dhaliwal MD Head CT 08/23/18 18:03 IMPRESSION: Focal hypodensity in the left frontal lobe may represent encephalomalacia given the history of prior infarct. MRI would be more sensitive to detect acute infarct. D/ / Sunny Dhaliwal MD / Sunny Dhaliwal MD Interpreting Provider: Sunny Dhaliwal MD
[2018-08-23 20:04] LABS: Bilirubin,Urine Negative (Negative); Blood,Urine Negative (Negative); Clarity,Urine Clear (Clear); Color,Urine Yellow (Yellow); Glucose,Urine (UA) Normal (Normal); Ketones,Urine Negative (Negative); Leukocyte Esterase,Urine Trace (Negative); Nitrite,Urine Negative (Negative); PH,Urine 5.5 pH Units (5.0-8.0); Protein,Urine Negative (Neg-Trace); Specific Gravity,Urine 1.007 (1.010-1.025); Urobilinogen,Urine Normal (Normal)
[2018-08-23 20:05] LABS: Bacteria,Urine None Seen per hpf (None-Few); Hyaline Casts,Urine Few per lpf (None-Few); RBC,Urine 0-3 per hpf (0-3); Squamous Epithelial Cell,Urine Many per lpf (None-Few); WBC,Urine 0-3 per hpf (0-3)
[2018-08-23 20:09] LABS: BUN/Creatinine Ratio 14 (6-26); eGFR For African Americans > 60 (> 60); eGFR For Non-African Americans > 60 (> 60)
[2018-08-23 20:14] LABS: Amphetamine Screen,Urine Negative ng/mL (Cutoff=1000); Barbiturate Screen,Urine Negative ng/mL (Cutoff=200); Benzodiazepines Screen,Urine Negative ng/mL (Cutoff=200); Cannabinoid Screen,Urine Negative ng/mL (Cutoff = 50); Cocaine Screen,Urine Negative ng/mL (Cutoff= 300); Opiate Screen,Urine Negative ng/mL (Cutoff=300); Phencyclidine Screen,Urine Negative ng/mL (Cutoff=25)
[2018-08-23] MEDS ORDERED: *HR* LORazepam 2 MG/ML VIAL IVP ONE (20:14)
[2018-08-23 21:06] LABS: Creatine Kinase 85 Units/L (30-223)
[2018-08-23] MEDS ORDERED: Potassium Chloride Elixir 20 MEQ/15 ML UDC PO ONE (21:35)
[2018-08-23] MEDS ORDERED: clonazePAM 0.5 MG TABLET PO SCH (21:45)
--- NOTE | 2018-08-23 21:50 | Internal Med History&Physical ---
Date of Encounter: 08/23/18 Time of Encounter: 21:46 Internal Medicine - H&P: HPI Chief complaint: AMS Admitted From: Home Plans for Post Hospital Care: Home History of present illness: Rui Kelley is a 58 year old woman with multiple psychiatric disorders who reportedly was brought in by EMS for altered mental status. She was seen to respond appropriately to questions in the ER and offered no complaints although was seen to be rather tangential and made comments that showed an underlying psychiatric illness. She was evaluated extensively in the ER with unremarkable labs. There was an initial presumption of UTI however on my review of those results, it does not translate to a UTI. A chest x-ray was done with report of an abnormal upper left lung lobe so she was started on antibiotics for pneumonia. On my review of this x-ray there is no consolidation and she has no respiratory symptoms to suggest a pneumonia. She is admitted for monitoring of her mental status. At the time of my assessment, she tells me she feels depressed and has not been taking her medications. She narrates that she was recently admitted to a psychiatric unit at [facility] and was told to stop drinking too much coffee. She offers no complaints at this time. Vitals: Reviewed General: Well-developed white woman lying comfortably in bed in no acute distress. Skin: Warm and supple with no lesions apparent. HEENT: Moist mucous membranes. No conjunctivae pallor. Neck: No lymphadenopathy. No JVD. No carotid bruits. No palpable thyroid. Chest: Normal thoracic expansion. Normal breath sounds. Clear to auscultation. Heart: Normal S1 & S2; rhythmic. No rubs or murmurs. Abdomen: Non-distended, soft and non-tender to palpation. No peritoneal reaction. Extremities: No clubbing, cyanosis or edema. No calf tenderness. Normal distal pulses. Neurological: Awake, alert and oriented to person but not place and time. No focal deficits. Psych: Affect appropriate. Assessment/Plan 1. Psychiatric disorder NOS: She has a bag of medications which have been reconciled and will resume accordingly. Will consult psych for evaluation tomorrow. There is no evidence of a medical disorder that seems to be a perturbance to her mental health at this time. There is no indication for continuation of antimicrobials. There is a risk that being out of her home element now and being hospitalized in an unknown environment could potentially trigger a psychotic episode so we will monitor her closely pending psychiatric evaluation. 2. Hypokalemia: Minimal and borderline at 3.4. Will supplement with 40mEq PO. 3. Hypothyroidism: Continue levothyroxine. 4. DVT prophylaxis: SCDs. Past Med Surg Social Fam HX - Past Medical History Medical history: asthma, COPD, GERD, thyroid disease, TIA, other Additional medical history: home oxygen. [employer] Psychiatric history: anxiety, bipolar, depression - Past Surgical History Surgical History: cholecystectomy, hysterectomy Additional surgical history: Laminectomy. Bowel resection surgery. - Social History Smoking Status: Former smoker Smokeless Tobacco Status: No Alcohol use: none Drug use: none - Family History Mother Living Status: Father Living Status: Internal Medicine - H&P: Meds Buspirone HCl [Buspar] 15 mg PO TID 07/08/16 [History] Levothyroxine [Synthroid] 50 mcg PO 0630 07/08/16 [History] Omeprazole [PriLOSEC] 40 mg PO DAILY 07/08/16 [History] Pravastatin Sodium [Pravachol] 20 mg PO HS 07/08/16 [History] Ibuprofen [Motrin] 600 mg PO Q8HR #20 tab 07/30/18 [Rx] Quetiapine Fumarate [Seroquel] 400 mg PO HS 07/30/18 [History] Tamsulosin HCl [Flomax] 0.4 mg PO DAILY 07/30/18 [History] Venlafaxine [Effexor] 37.5 mg PO TID 07/30/18 [History] clonazePAM [Klonopin] 1 tab PO BID 07/30/18 [History] hydrOXYzine HCl [Hydroxyzine HCl] 50 mg PO TID PRN #0 07/30/18 [History] Prazosin HCl [Minipress] 4 mg PO HS 08/23/18 [History] Topiramate [Topamax] 50 mg PO BID 08/23/18 [History] Allergy/AdvReac Type Severity Reaction Status Date / Time haloperidol [From Haldol] Allergy Hives Verified 07/08/16 13:29 All Systems PM: A 10-system review of systems was performed and is negative for pertinent findings except as documented above in the HPI. - Constitutional Vitals: Temp Pulse Resp BP Pulse Ox 98.6 F 91 22 105/83 100 08/23/18 17:55 08/23/18 20:39 08/23/18 21:28 08/23/18 21:28 08/23/18 20:39 Exam: . Internal Med - H&P Results - Labs CBC & Chem 7: 08/23/18 18:40 08/23/18 18:40 Labs: Short CBC 08/23/18 Range/Units 18:40 WBC 6.3 (4.3-11.1) K/mcL Hgb 12.3 (11.5-15.4) g/dL Hct 38.4 (35.3-44.9) % Plt Count 256 (140-400) K/mcL Neutrophils # 3.5 (1.6-8.9) K/mcL BMP 08/23/18 18:40 Sodium 143 Potassium 3.4 L Chloride 105 Carbon Dioxide 26 BUN 13 Creatinine 0.95 Glucose 95 Calcium 9.9 Cardiac Enzymes 08/23/18 Range/Units 18:40 Troponin I < 0.03 (< 0.04) ng/mL Liver Function 08/23/18 Range/Units 18:40 Total Bilirubin 0.5 (0.3-1.0) mg/dL Direct Bilirubin 0.2 (0.0-0.2) mg/dL AST 14 (13-39) Units/L ALT 25 (7-52) Units/L Alkaline Phosphatase 111 H (34-104) Units/L Albumin 4.4 (3.5-5.7) g/dL Urine 08/23/18 Range/Units 19:53 Urine Color Yellow (Yellow) Urine Clarity Clear (Clear) Urine pH 5.5 (5.0-8.0) pH Units Ur Specific [place] 1.007 L (1.010-1.025) Urine Protein Negative (Neg-Trace) mg/dL Urine Glucose (UA) Normal (Normal) mg/dL - Impressions ITS Impressions Chest X-Ray 08/23/18 18:03 IMPRESSION: Upper lobe predominant interstitial opacities could represent interstitial pneumonia or edema. D/ / Sunny Dhaliwal MD / Sunny Dhaliwal MD Interpreting Provider: Sunny Dhaliwal MD Head CT 06/23/19 18:03 IMPRESSION: Focal hypodensity in the left frontal lobe may represent encephalomalacia given the history of prior infarct. MRI would be more sensitive to detect acute infarct. D/ / Sunny Dhaliwal MD / Sunny Dhaliwal MD Interpreting Provider: Sunny Dhaliwal MD - Time Spent With Patient Total time spent is greater than 50% in coordination of care (as documented) at patient's floor/unit and/or counseling patient: Greater than 35 minutes
[2018-08-23] MEDS: hydrOXYzine pamoate 25 MG CAPSULE PO PRN (22:28)
[2018-08-23] MEDS: clonazePAM 0.5 MG TABLET PO SCH (23:49)
[2018-08-24] MEDS ORDERED: Acetaminophen 325 MG TABLET PO PRN (01:29)
[2018-08-24] MEDS ORDERED: Naloxone 0.4 MG/ML INJ IVP PRN (01:29)
[2018-08-24] MEDS: *HR* OxyCODONE Immed Rel 5 MG TABLET PO PRN (01:49)
[2018-08-24] MEDS: clonazePAM 0.5 MG TABLET PO SCH ×2 (08:02→20:27)
[2018-08-24] MEDS: Topiramate 25 MG TABLET PO SCH ×2 (08:02→20:28)
--- NOTE | 2018-08-24 12:25 | Consult Note ---
Date of Encounter: 08/24/18 Time of Encounter: 12:19 Assessment & Recommendation (1) Altered mental state Current visit: Yes Status: Acute Assessment & Recommendation: Client has a history of Bipolar Disorder but her current presentation seems more consistent with a delirium. She seems to be confused and not fully oriented. One thing to consider is possible benzo withdrawal. Client was complaining to this underwriter that doctors don't want to give her benzos and have reduced her Klonopin doses over time. However, client's tox screen was negative for benzos. Client reports she manages her own medications. Wonder if she has overtaken her Klonopin, run out, and is now in withdrawal. She also takes several sedating meds at home. If she has been confused and not taking them like she should she could possibly have been overdosing herself on meds like Seroquel, Prazosin, and Klonopin. Client was also asking for pain meds while this underwriter was in the room. Pupils were pinpoint and she has likely had recent doses of her prn pain meds that are ordered here. Suspect current presentation is related to polypharmacy and possible benzo withdrawal. May just need a couple of days of supportive care and correct dosing of her medications. Would not make any changes to her psych meds until source of her confusion becomes more clear. Will follow along. Qualifiers: Altered mental status type: delirium Qualified Code(s): R41.0 - Disorientation, unspecified History of Present Illness Requesting Physician: Conner Vera MD Reason for consult: altered mental status History of present illness: Ms. Kelley is a 58 year old female who was admitted for altered mental status. According to client a friend brought her to the hospital because "I was talking out of my head." Admits she has been feeling confused and still feels confused. Not fully oriented. Thought she was at [facility] today. Some disorganized thinking. Client states she has a history of Bipolar Disorder and that she has been hospitalized for mental illness in the past. However, client states she has not had recent problems with her mood. Denies SI/HI today. Client reports she lives alone and that she manages her own medications. Prescribed several sedating meds. Klonopin is one of her medications. Client was complaining today that her doctors have decreased her Klonopin doses over time. Her tox screen was negative for benzos. Possibly overtaking them at home and now in withdrawal. 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 Denies any other drugs of abuse. CC: Conner Vera MD Past Med Surg Social Fam HX - Past Medical History Medical history: asthma, COPD, GERD, thyroid disease, TIA, other - Past Psychiatric History Psychiatric history: Reports: bipolar, previous psychiatric hospitalization Family psychiatric history: Unknown Family History of Suicide: Unknown - Past Surgical History Surgical History: cholecystectomy, hysterectomy - Social History Smoking Status: Former smoker Smokeless Tobacco Status: No Alcohol use: none Drug use: none - Family History Mother Living Status: Father Living Status: Medications & Allergies Buspirone HCl [Buspar] 15 mg PO TID 07/08/16 [History] Levothyroxine [Synthroid] 50 mcg PO 0630 07/08/16 [History] Omeprazole [PriLOSEC] 40 mg PO DAILY 07/08/16 [History] Pravastatin Sodium [Pravachol] 20 mg PO HS 07/08/16 [History] Ibuprofen [Motrin] 600 mg PO Q8HR #20 tab 07/30/18 [Rx] Quetiapine Fumarate [Seroquel] 400 mg PO HS 07/30/18 [History] Tamsulosin HCl [Flomax] 0.4 mg PO DAILY 07/30/18 [History] Venlafaxine [Effexor] 37.5 mg PO TID 07/30/18 [History] clonazePAM [Klonopin] 1 tab PO BID 07/30/18 [History] hydrOXYzine HCl [Hydroxyzine HCl] 50 mg PO TID PRN #0 07/30/18 [History] Prazosin HCl [Minipress] 4 mg PO HS 08/23/18 [History] Topiramate [Topamax] 50 mg PO BID 08/23/18 [History] Allergy/AdvReac Type Severity Reaction Status Date / Time haloperidol [From Haldol] Allergy Hives Verified 07/08/16 13:29 Review of Systems Constitutional: Reports: other Eyes: Denies: eye pain, vision change Ears, Nose, Throat: Denies: ear pain, throat pain, dental pain, hearing loss, congestion Cardiovascular: Denies: chest pain, palpitations, dyspnea on exertion Respiratory: Denies: cough, dyspnea, wheezes Gastrointestinal: Denies: abdominal pain, nausea, vomiting, diarrhea, constipation Genitourinary female: Denies: urgency, dysuria, frequency, abnormal menses, dyspareunia Musculoskeletal: Reports: myalgia Integumentary: Denies: rash, lesions, pruritus Neurological: Reports: confusion Endocrine: Denies: fatigue, heat or cold intolerance Hematologic/Lymphatic: Denies: easy bruising, lymphadenopathy Allergic/Immunologic: Denies: urticaria, itchy eyes Psychiatry Exam - Constitutional Vitals: Temp Pulse Resp BP Pulse Ox 97.6 F 103 16 125/72 92 08/24/18 11:25 08/24/18 11:25 08/24/18 11:25 08/24/18 11:25 08/24/18 11:25 General appearance: obese - Musculoskeletal Gait: other Station: relaxed Strength & Tone: normal for patient - Psychiatric Patient Orientation: Yes Person, Yes Time, No Place, No Circumstance Level of alertness: Alert Behavior: calm, cooperative Psychomotor activity: Normal Eye Contact: Maintains Eye Contact Mood Description: Anxious Affect description: blunted Speech Volume: Soft/Quiet Speech pattern: mumbled Language & Vocabulary: consistent with education Thought Process: Tangential Thought Content: No Suicidal ideation, No Homicidal ideation, No Overt delusions Perceptual Disturbances: No Auditory hallucinations, No Visual hallucinations Attention Span Ability: Capable of Focused Attention, Unable to Sustain Attention Memory Description: Immediate Intact, Recent Impaired, Remote Intact Patient Reliability: Questionable Historian Fund of knowledge: Yes abstraction ability Intelligence Estimate: Average Judgment: Limited Insight: Minimal Results - Drug Levels and Toxicology Drug Levels and Toxicology: Drug Levels and Toxicity 08/23/18 08/23/18 18:40 19:53 Urine Opiates Screen Negative Ur Barbiturates Screen Negative Ur Phencyclidine Scrn Negative Ur Amphetamines Screen Negative U Benzodiazepines Scrn Negative Urine Cocaine Screen Negative U Marijuana (THC) Screen Negative Ethyl Alcohol < 10 - Labs Labs: Laboratory Last Values WBC 6.3 K/mcL (4.3-11.1) 08/23/18 18:40 RBC 4.34 M/mcL (3.82-4.97) 08/23/18 18:40 Hgb 12.3 g/dL (11.5-15.4) 08/23/18 18:40 Hct 38.4 % (35.3-44.9) 08/23/18 18:40 MCV 88.5 fL (83.0-100.0) 08/23/18 18:40 MCH 28.3 pg (28.0-33.3) 08/23/18 18:40 MCHC 32.0 g/dL (31.6-35.5) 08/23/18 18:40 RDW 13.2 % (11.5-14.5) 08/23/18 18:40 Plt Count 256 K/mcL (140-400) 08/23/18 18:40 MPV 9.6 fL (9.4-12.4) 08/23/18 18:40 Immature Gran % 0.2 % (0-4) 08/23/18 18:40 Seg Neutrophils % 56.1 % 08/23/18 18:40 31.7 % 08/23/18 18:40 8.7 % 08/23/18 18:40 2.2 % 08/23/18 18:40 1.1 % 08/23/18 18:40 3.5 K/mcL (1.6-8.9) 08/23/18 18:40 2.0 K/mcL (0.6-4.6) 08/23/18 18:40 0.6 K/mcL (0.0-1.3) 08/23/18 18:40 0.1 K/mcL (0.0-0.6) 08/23/18 18:40 0.1 K/mcL (0.0-0.2) 08/23/18 18:40 PT 12.4 Seconds (9.4-12.1) H 08/23/18 18:40 INR 1.1 08/23/18 18:40 APTT 35.4 Seconds (26.0-36.0) 08/23/18 18:40 Sodium 143 mEq/L (136-145) 08/23/18 18:40 Potassium 3.4 mEq/L (3.5-5.1) L 08/23/18 18:40 Chloride 105 mEq/L (98-107) 08/23/18 18:40 Carbon Dioxide 26 mEq/L (23-29) 08/23/18 18:40 BUN 13 mg/dL (6-20) 08/23/18 18:40 0.95 mg/dL (0.60-1.20) 08/23/18 18:40 Est GFR ( Amer) > 60 (> 60) 08/23/18 18:40 Est GFR (Non-Af Amer) > 60 (> 60) 08/23/18 18:40 14 (6-26) 08/23/18 18:40 Glucose 95 mg/dL (70-105) 08/23/18 18:40 296 (280-300) 08/23/18 18:40 Lactic Acid 0.8 mmol/L (0.5-2.2) 08/23/18 19:46 Calcium 9.9 mg/dL (8.6-10.3) 08/23/18 18:40 0.5 mg/dL (0.3-1.0) 08/23/18 18:40 0.2 mg/dL (0.0-0.2) 08/23/18 18:40 0.3 mg/dL (0.0-1.2) 08/23/18 18:40 AST 14 Units/L (13-39) 08/23/18 18:40 ALT 25 Units/L (7-52) 08/23/18 18:40 111 Units/L (34-104) H 08/23/18 18:40 40 mcmol/L (16-53) 08/23/18 18:40 85 Units/L (30-223) 08/23/18 18:40 < 0.03 ng/mL (< 0.04) 08/23/18 18:40 7.1 g/dL (6.4-8.9) 08/23/18 18:40 4.4 g/dL (3.5-5.7) 08/23/18 18:40 2.7 g/dL (2.4-3.5) 08/23/18 18:40 1.6 (1.1-2.2) 08/23/18 18:40 TSH 3.926 mcIU/mL (0.340-5.600) 08/23/18 18:40 Yellow (Yellow) 08/23/18 19:53 Clear (Clear) 08/23/18 19:53 5.5 pH Units (5.0-8.0) 08/23/18 19:53 Ur Specific [place] 1.007 (1.010-1.025) L 08/23/18 19:53 Negative mg/dL (Neg-Trace) 08/23/18 19:53 Normal mg/dL (Normal) 08/23/18 19:53 Negative mg/dL (Negative) 08/23/18 19:53 Negative (Negative) 08/23/18 19:53 Negative (Negative) 08/23/18 19:53 Negative (Negative) 08/23/18 19:53 Normal mg/dL (Normal) 08/23/18 19:53 Ur Leukocyte Esterase Trace (Negative) H 08/23/18 19:53 0-3 per hpf (0-3) 08/23/18 19:53 0-3 per hpf (0-3) 08/23/18 19:53 Ur Squamous Epith Cells Many per lpf (None-Few) H 08/23/18 19:53 None Seen per hpf (None-Few) 08/23/18 19:53 Hyaline Casts Few per lpf (None-Few) 08/23/18 19:53 Ur Culture Indicated? YES (NO) A 08/23/18 19:53 Negative ng/mL (Aibngo=405) 08/23/18 19:53 Ur Barbiturates Screen Negative ng/mL (Mofbxv=606) 08/23/18 19:53 Ur Phencyclidine Scrn Negative ng/mL (Cutoff=25) 08/23/18 19:53 Ur Amphetamines Screen Negative ng/mL (Mphhoo=6313) 08/23/18 19:53 U Benzodiazepines Scrn Negative ng/mL (Onpiyr=002) 08/23/18 19:53 Negative ng/mL (Cutoff= 300) 08/23/18 19:53 U Marijuana (THC) Screen Negative ng/mL (Cutoff = 50) 08/23/18 19:53 Ur Drug Screen Interp See Below 08/23/18 19:53 Ethyl Alcohol < 10 mg/dL (Less than 10) 08/23/18 18:40 - Impressions Impressions Chest X-Ray 08/23/18 18:03 IMPRESSION: Upper lobe predominant interstitial opacities could represent interstitial pneumonia or edema. D/ / Sunny Dhaliwal MD / Sunny Dhaliwal MD Interpreting Provider: Sunny Dhaliwal MD Head CT 08/23/18 18:03 IMPRESSION: Focal hypodensity in the left frontal lobe may represent encephalomalacia given the history of prior infarct. MRI would be more sensitive to detect acute infarct. D/ / Sunny Dhaliwal MD / Sunny Dhaliwal MD Interpreting Provider: Sunny Dhaliwal MD Consult Discharge Plan - Plan Referrals: Jonathan Sam CNP [Primary Care Provider] -
--- NOTE | 2018-08-24 13:46 | Internal Med Progress Note ---
Hospitalist Progress Note - Encounter Date of Encounter: 08/24/18 Time of Encounter: 09:15 - Subjective Interval History: Ms. Kelley is a 58 year old woman with known bipolar and on multiple psych medications including Klonopin, who reportedly was brought into ER by EMS for altered mental status. She was admitted for monitoring of her mental status. Pt stated she feels depressed and has not been taking her medications. She narrates that she was recently admitted to a psychiatric unit at [facility] and was told to stop drinking too much coffee. Apparently pt's clonopin dose was reduced by her PCP, however her Urine tox screen came back neagtive for Benzo's. Pt is more alert, awake and O x 3. Denied any CP SOB. Denied any suicidal ideation. - Exam Vitals: Temp Pulse Resp BP Pulse Ox 97.6 F 103 16 125/72 92 08/24/18 11:25 08/24/18 11:25 08/24/18 11:25 08/24/18 11:25 08/24/18 11:25 Exam: Gen: Alert, awake, Oriented to time,place and person.. Still looks little confused Chest: Diminished breath sounds B/L, No wheezing, No crackles, No rales Heart: S1S2+ RRR No murmurs Abd: Soft, NT, BS +, No organomegaly Ext: No edema, pulses are palpable, No calf tenderness Neuro : No acute focal neuro deficits noticed Skin: No rash Psych : Depressed... No suicidal ideation.. - Assessment and Plan (1) Altered mental state Current Visit: Yes Status: Acute Assessment and Plan: Mostly due to polypharmacy and possibleBenzo withdrawal symptoms Cont close motniring cont symptomatic and supportive care started her on scheduled Klonopin and continue other home medications Will defer to psychiatrist for further psychiatric medication management (2) Benzodiazepine withdrawal Current Visit: Yes Status: Acute Assessment and Plan: as above (3) Bipolar 2 disorder Current Visit: Yes Status: Acute Assessment and Plan: Resumed all home medications (4) Hypokalemia Current Visit: Yes Status: Acute Assessment and Plan: cont replacing cont close monitoring (5) Hypothyroidism Current Visit: Yes Status: Chronic Assessment and Plan: Continue home medication Synthroid - Time Spent with Patient Total time spent is greater than 50% in coordination of care (as documented) at patient's floor/unit and/or counseling patient: Internal Medicine: Result - Labs CBC & Chem 7: 08/23/18 18:40 08/23/18 18:40 Labs: Short CBC 08/23/18 Range/Units 18:40 WBC 6.3 (4.3-11.1) K/mcL Hgb 12.3 (11.5-15.4) g/dL Hct 38.4 (35.3-44.9) % Plt Count 256 (140-400) K/mcL Neutrophils # 3.5 (1.6-8.9) K/mcL BMP 08/23/18 18:40 Sodium 143 Potassium 3.4 L Chloride 105 Carbon Dioxide 26 BUN 13 Creatinine 0.95 Glucose 95 Calcium 9.9 Cardiac Enzymes 08/23/18 Range/Units 18:40 Troponin I < 0.03 (< 0.04) ng/mL Liver Function 08/23/18 Range/Units 18:40 Total Bilirubin 0.5 (0.3-1.0) mg/dL Direct Bilirubin 0.2 (0.0-0.2) mg/dL AST 14 (13-39) Units/L ALT 25 (7-52) Units/L Alkaline Phosphatase 111 H (34-104) Units/L Albumin 4.4 (3.5-5.7) g/dL Urine 08/23/18 Range/Units 19:53 Urine Color Yellow (Yellow) Urine Clarity Clear (Clear) Urine pH 5.5 (5.0-8.0) pH Units Ur Specific [place] 1.007 L (1.010-1.025) Urine Protein Negative (Neg-Trace) mg/dL Urine Glucose (UA) Normal (Normal) mg/dL - ABG Interpretation ABG results: PT/INR, D-dimer PT 12.4 Seconds (9.4-12.1) H 08/23/18 18:40 - Impressions Impressions Chest X-Ray 08/23/18 18:03 IMPRESSION: Upper lobe predominant interstitial opacities could represent interstitial pneumonia or edema. D/ / Sunny Dhaliwal MD / Sunny Dhaliwal MD Interpreting Provider: Sunny Dhaliwal MD Head CT 08/23/18 18:03 IMPRESSION: Focal hypodensity in the left frontal lobe may represent encephalomalacia given the history of prior infarct. MRI would be more sensitive to detect acute infarct. D/ / Sunny Dhaliwal MD / Sunny Dhaliwal MD Interpreting Provider: Sunny Dhaliwal MD Consult Discharge Plan - Plan Referrals: Jonathan Sam, EMERGENCY DEPARTMENT DIRECTOR [Primary Care Provider] - (1) Altered mental state Qualifiers: Altered mental status type: delirium Qualified Code(s): R41.0 - Disorientation, unspecified
[2018-08-24] MEDS: *HR* LORazepam 0.5 MG TABLET PO PRN (15:08)
[2018-08-24] MEDS: hydrOXYzine pamoate 25 MG CAPSULE PO PRN (22:58)
[2018-08-25] MEDS: *HR* LORazepam 0.5 MG TABLET PO PRN ×2 (00:29→10:34)
[2018-08-25 01:19] LABS: BUN/Creatinine Ratio 16 (6-26); Blood Urea Nitrogen 14 mg/dL (6-20); Calcium 9.5 mg/dL (8.6-10.3); Carbon Dioxide 22 mEq/L (23-29); Chloride 110 mEq/L (98-107); Glucose 125 mg/dL (70-105); Magnesium 1.6 mg/dL (1.6-2.6); Osmolality,Calculated 290 (280-300); Potassium 3.7 mEq/L (3.5-5.1); Sodium 139 mEq/L (136-145); eGFR For African Americans > 60 (> 60); eGFR For Non-African Americans > 60 (> 60)
[2018-08-25] MEDS: traMADol 50 MG TABLET PO PRN ×2 (04:16→22:11)
[2018-08-25] MEDS: Topiramate 25 MG TABLET PO SCH ×2 (07:58→20:45)
[2018-08-25] MEDS: clonazePAM 0.5 MG TABLET PO SCH ×2 (07:59→20:44)
--- NOTE | 2018-08-25 10:38 | Psychiatry Progress Note ---
Date of Encounter: 08/25/18 Time of Encounter: 10:00 Subjective Interval history: Saw patient today in follow-up. She reports she continues to feel anxious and that she feels as though Klonopin 0.5 is not sufficient. She did not admit to taking more at home and running out but she did infer that she had required more than that dose at times and that she was frustrated when her doctor decreased it. She denied suicidal or homicidal thoughts ideations or plans. Review of Systems Psychiatric: Reports: anxiety. Denies: suicidal ideation, homicidal ideation, auditory hallucinations, visual hallucinations Results - Vital Signs Vital Signs: Temp Pulse Resp BP Pulse Ox 98.6 F 97 16 135/80 96 08/25/18 07:44 08/25/18 07:44 08/25/18 07:44 08/25/18 07:44 08/25/18 07:44 - Labs Labs: Laboratory Results - last 24 hr 08/25/18 00:43 Sodium 139 Potassium 3.7 Chloride 110 H Carbon Dioxide 22 L BUN 14 Creatinine 0.87 Est GFR ( Amer) > 60 Est GFR (Non-Af Amer) > 60 BUN/Creatinine Ratio 16 Glucose 125 H Calculated Osmolality 290 Calcium 9.5 Magnesium 1.6 - Impressions ITS Impressions Chest X-Ray 08/23/18 18:03 IMPRESSION: Upper lobe predominant interstitial opacities could represent interstitial pneumonia or edema. D/ / Sunny Dhaliwal MD / Sunny Dhaliwal MD Interpreting Provider: Sunny Dhaliwal MD Head CT 08/23/18 18:03 IMPRESSION: Focal hypodensity in the left frontal lobe may represent encephalomalacia given the history of prior infarct. MRI would be more sensitive to detect acute infarct. D/ / Sunny Dhaliwal MD / Sunny Dhaliwal MD Interpreting Provider: Sunny Dhaliwal MD Assessment and Plan (1) Benzodiazepine withdrawal Current visit: Yes Status: Acute Plan: Continue hospitalization, Close observation, Suicide Precautions per unit protocol, Encourage participation in unit milieu, Group Therapy, Monitor sleep, Monitor appetite Additional Plan: To continue either increasing clonazepam to 1 mg twice a day versus using Ativan 0.5-1 mg 3 times a day Risks, benefits, side effects, alternatives discussed w/pt: Yes Patient agreeable to treatment: Yes Qualifiers: Complication of substance-induced condition: uncomplicated Qualified Code(s): F13.230 - Sedative, hypnotic or anxiolytic dependence with withdrawal, uncomplicated Consult Discharge Plan - Plan Referrals: Jonathan Sam CNP [Primary Care Provider] - 09/01/18 4:15 pm Psychiatry Exam - Constitutional Vitals: Temp Pulse Resp BP Pulse Ox 98.6 F 97 16 135/80 96 08/25/18 07:44 08/25/18 07:44 08/25/18 07:44 08/25/18 07:44 08/25/18 07:44 General appearance: disheveled - Musculoskeletal Gait: other (In bed) Station: slouched Strength & Tone: normal for patient - Psychiatric Patient Orientation: Yes Person, Yes Time, Yes Place, Yes Circumstance Level of alertness: Alert Behavior: calm Psychomotor activity: Slowed Eye Contact: Minimal Contact Mood Description: Anxious Patient description of mood: Anxious Affect description: congruent with mood Speech Volume: Soft/Quiet Speech pattern: normal rate Language & Vocabulary: consistent with education Thought Process: Intact Thought Content: No Suicidal ideation, No Homicidal ideation Perceptual Disturbances: No Auditory hallucinations, No Visual hallucinations Attention Span Ability: Capable of Focused Attention Memory Description: Grossly Intact Patient Reliability: Questionable Historian Fund of knowledge: Yes average Intelligence Estimate: Average Judgment: Fair Insight: Partial
[2018-08-25] MEDS: *HR* OxyCODONE Immed Rel 5 MG TABLET PO PRN (11:48)
[2018-08-25] MEDS: hydrOXYzine pamoate 25 MG CAPSULE PO PRN (14:32)
[2018-08-25] MEDS: Nicotine 2 MG GUM BC PRN ×2 (14:33→19:07)
--- NOTE | 2018-08-25 14:42 | Internal Med Progress Note ---
Hospitalist Progress Note - Encounter Date of Encounter: 08/25/18 Time of Encounter: 09:30 - Subjective Interval History: Ms. Kelley is a 58 year old woman with known bipolar and on multiple psych medications including Klonopin, who reportedly was brought into ER by EMS for altered mental status. She was admitted for monitoring of her mental status. Pt stated she feels depressed and has not been taking her medications. She narrates that she was recently admitted to a psychiatric unit at [facility] and was told to stop drinking too much coffee. Apparently pt's clonopin dose was reduced by her PCP, however her Urine tox screen came back neagtive for Benzo's. Pt is more alert, awake and O x 3. Denied any CP SOB. Denied any suicidal ideation. She still feels very anxious. Wanted to inc Clonopin dose to 1 mg. She still getting confused at times - Exam Vitals: Temp Pulse Resp BP Pulse Ox 98.5 F 97 16 112/63 97 08/25/18 11:48 08/25/18 11:48 08/25/18 11:48 08/25/18 11:48 08/25/18 11:48 Exam: Gen: Alert, awake, Oriented to time,place and person.. Still looks little confused Chest: Diminished breath sounds B/L, No wheezing, No crackles, No rales Heart: S1S2+ RRR No murmurs Abd: Soft, NT, BS +, No organomegaly Ext: No edema, pulses are palpable, No calf tenderness Neuro : No acute focal neuro deficits noticed Skin: No rash Psych : Depressed and anxious... No suicidal ideation.. - Assessment and Plan (1) Altered mental state Current Visit: Yes Status: Acute Assessment and Plan: Mostly due to polypharmacy and possibleBenzo withdrawal symptoms Cont close motniring cont symptomatic and supportive care Will inc her Klonopin to 1mg PO BID and continue other home medications Will defer to psychiatrist for further psychiatric medication management (2) Benzodiazepine withdrawal Current Visit: Yes Status: Acute Assessment and Plan: as above (3) Bipolar 2 disorder Current Visit: Yes Status: Acute Assessment and Plan: Cont all home medications (4) Hypokalemia Current Visit: Yes Status: Acute Assessment and Plan: resolved cont close monitoring (5) Hypothyroidism Current Visit: Yes Status: Chronic Assessment and Plan: Continue home medication Synthroid - Time Spent with Patient Total time spent is greater than 50% in coordination of care (as documented) at patient's floor/unit and/or counseling patient: Internal Medicine: Result - Labs CBC & Chem 7: 08/23/18 18:40 08/25/18 00:43 Labs: BMP 08/25/18 00:43 Sodium 139 Potassium 3.7 Chloride 110 H Carbon Dioxide 22 L BUN 14 Creatinine 0.87 Glucose 125 H Calcium 9.5 - ABG Interpretation ABG results: PT/INR, D-dimer PT 12.4 Seconds (9.4-12.1) H 08/23/18 18:40 Consult Discharge Plan - Plan Referrals: Jonathan Sam, INDEPENDENT [employer] CONSULTANT [Primary Care Provider] - 09/01/18 4:15 pm (1) Altered mental state Qualifiers: Altered mental status type: delirium Qualified Code(s): R41.0 - Disorientation, unspecified (2) Benzodiazepine withdrawal Qualifiers: Complication of substance-induced condition: uncomplicated Qualified Code(s): F13.230 - Sedative, hypnotic or anxiolytic dependence with withdrawal, uncomplicated
[2018-08-26] MEDS: Ibuprofen 400 MG TABLET PO PRN ×2 (02:46→10:45)
[2018-08-26 07:32] VITALS: BP 120/65
[2018-08-26] MEDS: clonazePAM 0.5 MG TABLET PO SCH (07:55)
[2018-08-26] MEDS: Topiramate 25 MG TABLET PO SCH (07:55)
[2018-08-26] MEDS: *HR* OxyCODONE Immed Rel 5 MG TABLET PO PRN (07:59)
[2018-08-26] MEDS: Nicotine 2 MG GUM BC PRN (10:45)
--- NOTE | 2018-08-26 12:27 | Electrocardiograph Report ---
[facility] Test Date: 2018-08-23 Pat Name: Rui Kelley Department: [id number] Room: 3B21 Gender: F [employer]: : 1960 Requested By: Kulwant Garcia Order Number: [id number] Reading MD: Austin Malloy Measurements Intervals [place] Rate: 99 P: 53 [place]: 143 QRS: 5 QRSD: 90 T: 76 QT: 356 QTc: 457 Interpretive Statements Sinus rhythm Electronically Signed On 08-26-2018 12:26:08 EDT by Austin Malloy
--- NOTE | 2018-08-26 13:14 | Discharge Summary ---
- NOTES TO OUTPATIENT PROVIDER Notes to Outpatient Provider: f/u with PCP in one week. f/u with psychiatrist in 1-2 weeks. 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 Kelley is a 58 year old woman with known bipolar and on multiple psych medications including Klonopin, who reportedly was brought into ER by EMS for altered mental status. She was admitted for monitoring of her mental status. Pt stated she feels depressed and has not been taking her medications. She narrates that she was recently admitted to a psychiatric unit at [facility] and was told to stop drinking too much coffee. Apparently pt's clonopin dose was reduced by her PCP, however her Urine tox screen came back neagtive for Benzo's. It seems to be pt was going through Benzo's withdrawal symptoms. Pt was evaluated by psychiatrist and recommended to start her on Clonopin.. Initially she was placed on 0.5mg PO BID, however her symptoms have not improved, so increased Clonopin dose to 1mg PO BID. Today pt is more alert, awake and O x 3. Denied any suicidal ideation. Stated she is feeling much better and wanted to go home. - Time Spent with Patient Total time spent providing and/or coordinating discharge services: - Discharge Medications Prescriptions: New clonazePAM [Clonazepam] 1 mg PO BID PRN 15 Days #30 tablet PRN Reason: Anxiety Continued Buspirone HCl [Buspar] 15 mg PO TID Levothyroxine [Synthroid] 50 mcg PO 0630 Omeprazole [PriLOSEC] 40 mg PO DAILY Pravastatin Sodium [Pravachol] 20 mg PO HS Tamsulosin HCl [Flomax] 0.4 mg PO DAILY Venlafaxine [Effexor] 37.5 mg PO TID hydrOXYzine HCl [Hydroxyzine HCl] 50 mg PO TID PRN #0 PRN Reason: Anxiety Quetiapine Fumarate [Seroquel] 400 mg PO HS Topiramate [Topamax] 50 mg PO BID Prazosin HCl [Minipress] 4 mg PO HS Discontinued Ibuprofen [Motrin] 600 mg PO Q8HR #20 tab clonazePAM [Klonopin] 1 tab PO BID Home Medications: Buspirone HCl [Buspar] 15 mg PO TID 07/08/16 [History] Levothyroxine [Synthroid] 50 mcg PO 0630 07/08/16 [History] Omeprazole [PriLOSEC] 40 mg PO DAILY 07/08/16 [History] Pravastatin Sodium [Pravachol] 20 mg PO HS 07/08/16 [History] Quetiapine Fumarate [Seroquel] 400 mg PO HS 07/30/18 [History] Tamsulosin HCl [Flomax] 0.4 mg PO DAILY 07/30/18 [History] Venlafaxine [Effexor] 37.5 mg PO TID 07/30/18 [History] hydrOXYzine HCl [Hydroxyzine HCl] 50 mg PO TID PRN #0 07/30/18 [History] Prazosin HCl [Minipress] 4 mg PO HS 08/23/18 [History] Topiramate [Topamax] 50 mg PO BID 08/23/18 [History] clonazePAM [Clonazepam] 1 mg PO BID PRN 15 Days #30 tablet 08/26/18 [Rx] Allergies/Adverse Reactions: Allergy/AdvReac Type Severity Reaction Status Date / Time haloperidol [From Haldol] Allergy Hives Verified 07/08/16 13:29 Date of admission: 08/23/18 21:12 Primary care physician: Jonathan Sam CNP Consults: 08/23/18 21:35 Consult to Psychiatry [CONS] Routine Consulting Provider: Psychiatry Ewen Reason consult: Altered mental status - Constitutional Vitals: Temp Pulse Resp BP Pulse Ox 98.5 F 104 16 120/65 94 08/26/18 07:31 08/26/18 07:31 08/26/18 07:31 08/26/18 07:31 08/26/18 07:31 General appearance: Present: A&O X 3, no acute distress, answers questions appropriately Exam: Gen: Alert, awake, Oriented to time,place and person. Chest: Diminished breath sounds B/L, No wheezing, No crackles, No rales Heart: S1S2+ RRR No murmurs Abd: Soft, NT, BS +, No organomegaly Ext: No edema, pulses are palpable, No calf tenderness Neuro : No acute focal neuro deficits noticed Skin: No rash Psych : Depressed and anxious... No suicidal ideation.. - Patient Status Disposition: Home Health Service Condition: Good Overall status at discharge: patient is back to baseline - Discharge Instructions Follow Up With: Jonathan Sam CNP [Primary Care Provider] - 09/01/18 4:15 pm - Diet and Activity Activity: increase activity as tolerated Diet: low salt diet
--- NOTE | 2018-08-26 13:15 | Physician Discharge Referral ---
Home Health/Hosp Referral Info Transfer to: Home Health Provider in Charge Post Discharge: PCP - Diagnosis (1) Altered mental state Status: Acute (2) Benzodiazepine withdrawal Status: Acute (3) Bipolar 2 disorder Status: Acute (4) Hypokalemia Status: Acute (5) Hypothyroidism Status: Chronic - Respiratory Orders Smoking Cessation: Smoking cessation has been advised. For more information, call the [place] Tobacco Quit Line at 3-390-MYXM-NOW. - Services Needed Following services are medically necessary services: Nursing, Physical Therapy, Occupational Therapy - Transfer Medications Prescriptions: clonazePAM [Clonazepam] 1 mg PO BID PRN 15 Days #30 tablet PRN Reason: Anxiety Home Medications: Buspirone HCl [Buspar] 15 mg PO TID 07/08/16 [History] Levothyroxine [Synthroid] [place] [address]/08/16 [History] Omeprazole [PriLOSEC] 40 mg PO DAILY 07/08/16 [History] Pravastatin Sodium [Pravachol] 20 mg PO HS 07/08/16 [History] Quetiapine Fumarate [Seroquel] 400 mg PO HS 07/30/18 [History] Tamsulosin HCl [Flomax] 0.4 mg PO DAILY 07/30/18 [History] Venlafaxine [Effexor] 37.5 mg PO TID 07/30/18 [History] hydrOXYzine HCl [Hydroxyzine HCl] 50 mg PO TID PRN #0 07/30/18 [History] Prazosin HCl [Minipress] 4 mg PO HS 08/23/18 [History] Topiramate [Topamax] 50 mg PO BID 08/23/18 [History] clonazePAM [Clonazepam] 1 mg PO BID PRN 15 Days #30 tablet 08/26/18 [Rx] Allergies/Adverse Reactions: Allergy/AdvReac Type Severity Reaction Status Date / Time haloperidol [From Haldol] Allergy Hives Verified 07/08/16 13:29 Certification: Further, I certify that my clinical findings support that this patient is homebound (i.e. absences from home require considerable and taxing effort and are for medical reasons or [facility] or infrequently or short duration when for other reasons) because: Homebound Reason: Patient requires assistance of a person or device to safely leave home Attestation: My signature below is to certify that this patient is under my care and that I, or nurse practitioner, or a physician's project administrative assistant working with me, has a [id number] encounter with this patient.
[2018-08-26] MEDS: *HR* LORazepam 0.5 MG TABLET PO PRN (13:19)
== END 2018-08-26 14:36 | disposition home health service (06) ==
LOC: 3BNU 17:46 → EMEROOARM 17:46 → SUATTDRO 21:12 → 3BNU 21:55
PROVIDERS: ADMIT Internal Medicine; ATTEND Family Medicine

== ENCOUNTER 2018-10-24 09:31 | Inpatient (IN) ==
[2018-10-24] MEDS ORDERED: *HR* LORazepam 0.5 MG TABLET PO ONE (09:54)
[2018-10-24 10:21] LABS: Basophils # 0.1 K/mcL (0.0-0.2); Basophils % 1.3 %; Eosinophils # 0.1 K/mcL (0.0-0.6); Eosinophils % 1.7 %; Hematocrit 43.4 % (35.3-44.9); Hemoglobin 14.1 g/dL (11.5-15.4); Immature Granulocytes % 0.2 % (0-4); Lymphocytes # 1.7 K/mcL (0.6-4.6); Lymphocytes % 35.1 %; Mean Corpuscular HGB Conc 32.5 g/dL (31.6-35.5); Mean Corpuscular Hemoglobin 28.1 pg (28.0-33.3); Mean Corpuscular Volume 86.5 fL (83.0-100.0); Monocytes # 0.4 K/mcL (0.0-1.3); Monocytes % 7.7 %; Neutrophils # 2.6 K/mcL (1.6-8.9); Platelet Count 263 K/mcL (140-400); Red Blood Count 5.02 M/mcL (3.82-4.97); Red Cell Distribution Width 14.8 % (11.5-14.5); White Blood Count 4.8 K/mcL (4.3-11.1)
[2018-10-24 10:31] LABS: Acetaminophen < 10 mcg/mL (10-20); BUN/Creatinine Ratio 13 (6-26); Blood Urea Nitrogen 13 mg/dL (6-20); Carbon Dioxide 24 mEq/L (23-29); Chloride 103 mEq/L (98-107); Ethanol < 10 mg/dL (Less than 10); Glucose 144 mg/dL (70-105); Osmolality,Calculated 289 (280-300); Potassium 4.6 mEq/L (3.5-5.1); Salicylate < 2.5 mg/dL (15.0-30.0); Sodium 138 mEq/L (136-145); eGFR For African Americans > 60 (> 60); eGFR For Non-African Americans 59 (> 60)
[2018-10-24 11:21] LABS: Bilirubin,Urine Small (Negative); Blood,Urine Negative (Negative); Clarity,Urine Cloudy (Clear); Color,Urine Dark Yellow (Yellow); Glucose,Urine (UA) Normal (Normal); Ketones,Urine Negative (Negative); Leukocyte Esterase,Urine Large (Negative); Nitrite,Urine Negative (Negative); PH,Urine 5.5 pH Units (5.0-8.0); Protein,Urine Trace mg/dL (Neg-Trace); Urobilinogen,Urine Normal (Normal)
[2018-10-24 11:23] LABS: Bacteria,Urine Few per hpf (None-Few); Squamous Epithelial Cell,Urine Moderate per lpf (None-Few)
[2018-10-24] MEDS ORDERED: cefTRIAXone 1,000 MG in Water for inj. (sterile) 10 ML IVP ONE (11:34)
[2018-10-24 11:37] LABS: Amphetamine Screen,Urine Negative ng/mL (Cutoff=1000); Barbiturate Screen,Urine Negative ng/mL (Cutoff=200); Benzodiazepines Screen,Urine Negative ng/mL (Cutoff=200); Cannabinoid Screen,Urine Negative ng/mL (Cutoff = 50); Cocaine Screen,Urine Negative ng/mL (Cutoff= 300); Opiate Screen,Urine Negative ng/mL (Cutoff=300); Phencyclidine Screen,Urine Negative ng/mL (Cutoff=25)
[2018-10-24] MEDS ORDERED: CefTRIAXone 1,000 MG VIAL IM ONE (12:48)
[2018-10-24] MEDS ORDERED: Water for inj. (sterile) 10 ML ONE (12:51)
[2018-10-24] MEDS ORDERED: hydrOXYzine pamoate 25 MG CAPSULE PO PRN (14:36)
[2018-10-24] MEDS ORDERED: Mag Hydrox/Al Hydrox/Simeth 30 ML UDC PO PRN (14:36)
[2018-10-24] MEDS ORDERED: *HR* LORazepam 1 MG TABLET PO PRN (14:36)
[2018-10-24] MEDS ORDERED: MOM Conc 10 ML UD.LIQ PO PRN (14:36)
[2018-10-24] MEDS ORDERED: *HR* LORazepam 2 MG/ML VIAL IM PRN (14:36)
[2018-10-24] MEDS ORDERED: Ziprasidone 20 MG CAPSULE PO PRN (14:42)
[2018-10-24] MEDS ORDERED: *HR* LORazepam 0.5 MG TABLET PO PRN (14:50)
[2018-10-24] MEDS: *HR* LORazepam 0.5 MG TABLET PO PRN (16:00)
[2018-10-24] MEDS: Acetaminophen 325 MG TABLET PO PRN (16:00)
[2018-10-24] MEDS: Nicotine 2 MG GUM BC PRN ×2 (16:49→20:51)
[2018-10-24] MEDS: Topiramate 25 MG TABLET PO SCH (20:55)
[2018-10-24] MEDS: QUEtiapine Fumarate 100 MG TABLET PO SCH (20:55)
[2018-10-24] MEDS: Famotidine 20 MG TABLET PO SCH (20:57)
[2018-10-24] MEDS: carBAMazepine 200 MG TABLET PO SCH (20:57)
[2018-10-24] MEDS: hydrOXYzine pamoate 25 MG CAPSULE PO PRN (20:58)
[2018-10-24] MEDS: traZODone 50 MG TABLET PO PRN (20:58)
[2018-10-25] MEDS: carBAMazepine 200 MG TABLET PO SCH ×2 (08:51→21:27)
[2018-10-25] MEDS: Famotidine 20 MG TABLET PO SCH ×2 (08:51→21:27)
[2018-10-25] MEDS: Loratadine 10 MG TABLET PO SCH (08:52)
[2018-10-25] MEDS: Topiramate 25 MG TABLET PO SCH ×2 (08:52→21:26)
[2018-10-25] MEDS: Nicotine 2 MG GUM BC PRN ×5 (08:55→21:25)
[2018-10-25] MEDS ORDERED: NON-FORMULARY MEDICATION 1 EACH EACH (Fluticasone/Vilanterol [Breo Ellipta 200-25 Mcg Inh] IH SCH (09:00)
[2018-10-25] MEDS: *HR* LORazepam 0.5 MG TABLET PO PRN (09:37)
[2018-10-25] MEDS: Budesonide/Formoterol 80/4.5 1 PUFF INH IH SCH ×2 (10:48→21:24)
[2018-10-25] MEDS: Acetaminophen 325 MG TABLET PO PRN ×2 (12:20→21:28)
[2018-10-25] MEDS: traZODone 50 MG TABLET PO PRN (21:27)
[2018-10-25] MEDS: QUEtiapine Fumarate 100 MG TABLET PO SCH (21:27)
[2018-10-25] MEDS: clonazePAM 1 MG TABLET PO SCH (21:27)
[2018-10-26 09:23] LABS: Chol/HDL Ratio 2.7 (0-4.9)
[2018-10-26] MEDS: Famotidine 20 MG TABLET PO SCH ×2 (09:32→20:29)
[2018-10-26] MEDS: Loratadine 10 MG TABLET PO SCH (09:32)
[2018-10-26] MEDS: carBAMazepine 200 MG TABLET PO SCH ×2 (09:32→20:29)
[2018-10-26] MEDS: Venlafaxine XR (24 HR) 37.5 MG CAP.ER.24H PO SCH (09:33)
[2018-10-26] MEDS: Nicotine 2 MG GUM BC PRN ×5 (09:33→20:32)
[2018-10-26] MEDS: Budesonide/Formoterol 80/4.5 1 PUFF INH IH SCH ×2 (09:34→21:04)
[2018-10-26] MEDS: Topiramate 25 MG TABLET PO SCH ×2 (09:36→20:29)
[2018-10-26] MEDS: clonazePAM 1 MG TABLET PO PRN (12:01)
[2018-10-26] MEDS: Acetaminophen 325 MG TABLET PO PRN (13:16)
[2018-10-26] MEDS: Ibuprofen 600 MG TABLET PO PRN (18:37)
[2018-10-26] MEDS: QUEtiapine Fumarate 100 MG TABLET PO SCH (20:29)
[2018-10-26] MEDS: clonazePAM 1 MG TABLET PO SCH (20:29)
[2018-10-27] MEDS: carBAMazepine 200 MG TABLET PO SCH ×2 (09:30→20:37)
[2018-10-27] MEDS: Famotidine 20 MG TABLET PO SCH ×2 (09:30→20:38)
[2018-10-27] MEDS: Loratadine 10 MG TABLET PO SCH (09:30)
[2018-10-27] MEDS: Topiramate 25 MG TABLET PO SCH ×2 (09:30→20:38)
[2018-10-27] MEDS: Venlafaxine XR (24 HR) 37.5 MG CAP.ER.24H PO SCH (09:30)
[2018-10-27] MEDS: Budesonide/Formoterol 80/4.5 1 PUFF INH IH SCH ×2 (09:31→20:36)
[2018-10-27] MEDS: Nicotine 2 MG GUM BC PRN ×5 (09:33→20:43)
[2018-10-27] MEDS: clonazePAM 1 MG TABLET PO PRN (10:08)
[2018-10-27] MEDS: Ibuprofen 600 MG TABLET PO PRN (13:53)
[2018-10-27] MEDS: Acetaminophen 325 MG TABLET PO PRN (16:02)
[2018-10-27] MEDS: QUEtiapine Fumarate 100 MG TABLET PO SCH (20:37)
[2018-10-27] MEDS: clonazePAM 1 MG TABLET PO SCH (20:38)
[2018-10-27] MEDS: hydrOXYzine pamoate 25 MG CAPSULE PO PRN (21:57)
[2018-10-28] MEDS: Nicotine 2 MG GUM BC PRN ×3 (04:35→10:23)
[2018-10-28] MEDS: Acetaminophen 325 MG TABLET PO PRN (07:32)
[2018-10-28] MEDS: clonazePAM 1 MG TABLET PO SCH (08:28)
[2018-10-28] MEDS: carBAMazepine 200 MG TABLET PO SCH (08:28)
[2018-10-28] MEDS: Loratadine 10 MG TABLET PO SCH (08:28)
[2018-10-28] MEDS: Famotidine 20 MG TABLET PO SCH (08:28)
[2018-10-28] MEDS: Topiramate 25 MG TABLET PO SCH (08:29)
[2018-10-28] MEDS ORDERED: QUEtiapine Fumarate 100 MG TABLET PO SCH (09:00)
[2018-10-28 09:24] VITALS: BP 95/64
[2018-10-28] MEDS: Budesonide/Formoterol 80/4.5 1 PUFF INH IH SCH (09:52)
== END 2018-10-28 12:20 | disposition home or self-care (01) | DRG 753 ==
LOC: EMEROOARM 09:31 → SUATTDRO 14:23 → 1ANU 14:23
PROVIDERS: ADMIT Psychiatry & Neurology Forensic Psychiatry; ATTEND Psychiatry & Neurology Psychiatry

== ENCOUNTER 2019-12-18 10:09 | Observation (INO) ==
[2019-12-18 10:38] LABS: Basophils # 0.1 K/mcL (0.0-0.2); Basophils % 0.8 %; Eosinophils # 0.2 K/mcL (0.0-0.6); Eosinophils % 2.3 %; Hematocrit 39.6 % (35.3-44.9); Hemoglobin 12.4 g/dL (11.5-15.4); Immature Granulocytes % 0.5 % (0-4); Lymphocytes # 1.8 K/mcL (0.6-4.6); Lymphocytes % 21.4 %; Mean Corpuscular HGB Conc 31.3 g/dL (31.6-35.5); Mean Corpuscular Volume 102.1 fL (83.0-100.0); Mean Platelet Volume 9.9 fL (9.4-12.4); Monocytes # 0.5 K/mcL (0.0-1.3); Neutrophils # 5.8 K/mcL (1.6-8.9); Platelet Count 199 K/mcL (140-400); Red Blood Count 3.88 M/mcL (3.82-4.97); Red Cell Distribution Width 14.3 % (11.5-14.5); White Blood Count 8.4 K/mcL (4.3-11.1)
[2019-12-18 10:56] LABS: Acetaminophen < 10 mcg/mL (10-20); BUN/Creatinine Ratio 33 (6-26); Blood Urea Nitrogen 22 mg/dL (8-23); Calcium 9.1 mg/dL (8.6-10.3); Carbon Dioxide 24 mEq/L (23-29); Chloride 107 mEq/L (98-107); Cholesterol 156 mg/dL (< 200); Ethanol < 10 mg/dL (Less than 10); Glucose 102 mg/dL (70-105); HDL Cholesterol 79 mg/dL (40-59); LDL Cholesterol,Calculated 46 mg/dL (< 100); Osmolality,Calculated 290 (280-300); Potassium 4.3 mEq/L (3.5-5.1); Salicylate < 2.5 mg/dL (15.0-30.0); Sodium 138 mEq/L (136-145); Triglycerides 155 mg/dL (< 150); eGFR For African Americans > 60 (> 60); eGFR For Non-African Americans > 60 (> 60)
[2019-12-18] MEDS ORDERED: *HR* HYDROcodone/Acet 5/325 mg TABLET PO ONE (11:22)
[2019-12-18 11:43] LABS: Bacteria,Urine Few per hpf (None-Few); Bilirubin,Urine Negative (Negative); Blood,Urine Negative (Negative); Clarity,Urine Clear (Clear); Color,Urine Yellow (Yellow); Glucose,Urine (UA) Normal (Normal); Ketones,Urine Negative (Negative); Leukocyte Esterase,Urine Moderate (Negative); Mucus,Urine Few per lpf (None-Few); Nitrite,Urine Negative (Negative); Protein,Urine Trace mg/dL (Neg-Trace); RBC,Urine 0-3 per hpf (0-3); Specific Gravity,Urine 1.028 (1.010-1.025); Squamous Epithelial Cell,Urine Few per hpf (None-Few); Urobilinogen,Urine Normal (Normal)
[2019-12-18 11:49] LABS: Estimated Average Glucose 123 mg/dl
[2019-12-18 12:05] LABS: Amphetamine Screen,Urine Negative ng/mL (Cutoff=1000); Barbiturate Screen,Urine Negative ng/mL (Cutoff=200); Benzodiazepines Screen,Urine Positive ng/mL (Cutoff=200); Cannabinoid Screen,Urine Positive ng/mL (Cutoff = 50); Cocaine Screen,Urine Negative ng/mL (Cutoff= 300); Opiate Screen,Urine Positive ng/mL (Cutoff=300); Phencyclidine Screen,Urine Negative ng/mL (Cutoff=25)
[2019-12-18] MEDS ORDERED: clonazePAM 0.5 MG TABLET PO STA (12:49)
[2019-12-18 13:03] LABS: Alanine Aminotransferase 27 Units/L (7-52); Albumin 4.3 g/dL (3.5-5.7); Albumin/Globulin Ratio 1.7 (1.1-2.2); Alkaline Phosphatase 117 Units/L (34-104); Aspartate Amino Transferase 19 Units/L (13-39); Bilirubin,Direct 0.1 mg/dL (0.0-0.2); Bilirubin,Indirect 0.2 mg/dL (0.0-1.0); Bilirubin,Total 0.3 mg/dL (0.3-1.0); Globulin 2.5 g/dL (2.4-3.5); Lipase 184 Units/L (11-82); Total Protein 6.8 g/dL (6.4-8.9)
[2019-12-18] MEDS ORDERED: Ondansetron 4 MG/2 ML VIAL IVP PRN (15:34)
[2019-12-18] MEDS ORDERED: Naloxone 0.4 MG/ML INJ IVP PRN (15:34)
[2019-12-18] MEDS ORDERED: Albuterol 2.5 MG/3 ML NEBULIZER IH PRN (15:39)
[2019-12-18] MEDS ORDERED: Ringers Solution, Lactated 1,000 ML IVC SCH (15:45)
[2019-12-18] MEDS: Gabapentin 300 MG CAPSULE PO SCH ×2 (18:34→19:58)
[2019-12-18] MEDS: Lactulose Oral Soln 20 GM/30 ML UDC PO SCH (19:58)
[2019-12-18] MEDS: *HR* HYDROcodone/Acet 5/325 mg TABLET PO PRN (20:01)
[2019-12-18] MEDS: Topiramate 25 MG TABLET PO SCH (20:01)
[2019-12-18] MEDS ORDERED: CarBAMazepine XR (12 hr) 100 MG TAB PO SCH (21:00)
[2019-12-18] MEDS ORDERED: QUEtiapine Fumarate 100 MG TABLET PO SCH (21:00)
[2019-12-18] MEDS ORDERED: PRAZOSIN HCL 15 MG PO SCH (21:00)
[2019-12-19] MEDS: clonazePAM 1 MG TABLET PO PRN ×2 (01:36→10:08)
[2019-12-19 02:35] LABS: Basophils # 0.1 K/mcL (0.0-0.2); Eosinophils # 0.2 K/mcL (0.0-0.6); Eosinophils % 3.9 %; Hematocrit 36.9 % (35.3-44.9); Hemoglobin 11.8 g/dL (11.5-15.4); Immature Granulocytes % 0.2 % (0-4); Lymphocytes # 2.1 K/mcL (0.6-4.6); Lymphocytes % 34.6 %; Mean Platelet Volume 10.3 fL (9.4-12.4); Monocytes # 0.5 K/mcL (0.0-1.3); Monocytes % 7.3 %; Neutrophils # 3.3 K/mcL (1.6-8.9); Platelet Count 205 K/mcL (140-400); Red Blood Count 3.69 M/mcL (3.82-4.97); Red Cell Distribution Width 14.3 % (11.5-14.5); White Blood Count 6.1 K/mcL (4.3-11.1)
[2019-12-19 02:55] LABS: BUN/Creatinine Ratio 25 (6-26); Blood Urea Nitrogen 15 mg/dL (8-23); Calcium 8.7 mg/dL (8.6-10.3); Carbon Dioxide 23 mEq/L (23-29); Chloride 112 mEq/L (98-107); Glucose 99 mg/dL (70-105); Magnesium 2.1 mg/dL (1.6-2.6); Osmolality,Calculated 291 (280-300); Phosphorous 3.2 mg/dL (2.7-4.5); Potassium 3.7 mEq/L (3.5-5.1); Sodium 140 mEq/L (136-145); eGFR For African Americans > 60 (> 60); eGFR For Non-African Americans > 60 (> 60)
[2019-12-19] MEDS: *HR* HYDROcodone/Acet 5/325 mg TABLET PO PRN (05:39)
[2019-12-19] MEDS ORDERED: *HR* Enoxaparin 40 MG/0.4 ML SYRINGE SQ SCH (06:00)
[2019-12-19] MEDS ORDERED: Loratadine 10 MG TABLET PO SCH (09:00)
[2019-12-19] MEDS ORDERED: (Cariprazine Hcl [Vraylar] 3 MG) PO SCH (09:00)
[2019-12-19] MEDS ORDERED: FLUoxetine 20 MG CAPSULE PO SCH (09:00)
[2019-12-19] MEDS: Lactulose Oral Soln 20 GM/30 ML UDC PO SCH (10:05)
[2019-12-19] MEDS: Gabapentin 300 MG CAPSULE PO SCH (10:08)
[2019-12-19] MEDS: Topiramate 25 MG TABLET PO SCH (10:09)
[2019-12-19 11:29] VITALS: BP 145/79
== END 2019-12-19 12:11 ==
LOC: EMEROOARM 10:09 → 3BNU 10:09 → SUATTDRO 15:54 → 3BNU 16:44
PROVIDERS: ADMIT Internal Medicine; ATTEND Family Medicine

== ENCOUNTER 2019-12-19 11:57 | Inpatient (IN) ==
[2019-12-19] MEDS ORDERED: MOM Conc 10 ML UD.LIQ PO PRN (12:46)
[2019-12-19] MEDS ORDERED: *HR* LORazepam 1 MG TABLET PO PRN (12:46)
[2019-12-19] MEDS ORDERED: haloperidoL 5 MG TABLET PO PRN (12:46)
[2019-12-19] MEDS ORDERED: Mag Hydrox/Al Hydrox/Simeth 30 ML UDC PO PRN (12:46)
[2019-12-19] MEDS ORDERED: traZODone 50 MG TABLET PO PRN (12:46)
[2019-12-19] MEDS ORDERED: *HR* LORazepam 2 MG/ML VIAL IM PRN (12:46)
[2019-12-19] MEDS ORDERED: Haloperidol Lactate 5 MG/ML VIAL IM PRN (12:46)
[2019-12-19] MEDS: *HR* HYDROcodone/Acet 10/325 mg TABLET PO PRN (15:10)
[2019-12-19] MEDS: Gabapentin 300 MG CAPSULE PO SCH ×2 (15:10→20:14)
[2019-12-19] MEDS: Nicotine 2 MG GUM BC PRN ×3 (15:10→19:31)
[2019-12-19] MEDS: Ibuprofen 400 MG TABLET PO PRN (19:14)
[2019-12-19] MEDS: QUEtiapine Fumarate 100 MG TABLET PO SCH (20:14)
[2019-12-19] MEDS: Topiramate 25 MG TABLET PO SCH (20:14)
[2019-12-19] MEDS: CarBAMazepine XR (12 hr) 100 MG TAB PO SCH (20:14)
[2019-12-19] MEDS: PRAZOSIN HCL 15 MG PO SCH (20:52)
[2019-12-19] MEDS ORDERED: PRAZOSIN HCL 15 MG PO SCH (21:00)
[2019-12-20] MEDS: *HR* HYDROcodone/Acet 10/325 mg TABLET PO PRN ×4 (02:07→22:20)
[2019-12-20] MEDS: Nicotine 2 MG GUM BC PRN ×6 (06:26→20:51)
[2019-12-20] MEDS: Topiramate 25 MG TABLET PO SCH ×2 (08:53→20:27)
[2019-12-20] MEDS: Loratadine 10 MG TABLET PO SCH (08:53)
[2019-12-20] MEDS: Gabapentin 300 MG CAPSULE PO SCH ×4 (08:53→20:27)
[2019-12-20] MEDS: FLUoxetine 20 MG CAPSULE PO SCH (08:54)
[2019-12-20] MEDS: clonazePAM 1 MG TABLET PO PRN ×2 (08:56→20:28)
[2019-12-20] MEDS ORDERED: Cholecalciferol (D-3) 1,000 UNIT (25MCG) TABLET PO SCH (11:45)
[2019-12-20] MEDS: Cholecalciferol (D-3) 1,000 UNIT (25MCG) TABLET PO SCH (12:38)
[2019-12-20] MEDS: hydrOXYzine pamoate 25 MG CAPSULE PO PRN (13:25)
[2019-12-20] MEDS: Furosemide 20 MG TABLET PO SCH (16:25)
[2019-12-20] MEDS: Ibuprofen 400 MG TABLET PO PRN (19:09)
[2019-12-20] MEDS: PRAZOSIN HCL 15 MG PO SCH (20:26)
[2019-12-20] MEDS: CarBAMazepine XR (12 hr) 100 MG TAB PO SCH (20:27)
[2019-12-20] MEDS: QUEtiapine Fumarate 100 MG TABLET PO SCH (20:27)
[2019-12-20] MEDS: Budesonide/Formoterol 160/4.5 1 PUFF INH IH SCH (20:36)
[2019-12-21] MEDS: Nicotine 2 MG GUM BC PRN ×6 (04:45→19:40)
[2019-12-21] MEDS: hydrOXYzine pamoate 25 MG CAPSULE PO PRN ×2 (05:54→14:36)
[2019-12-21] MEDS: *HR* HYDROcodone/Acet 10/325 mg TABLET PO PRN ×2 (06:46→16:56)
[2019-12-21] MEDS: Multivit/Ca/Min/Fe/FA 1 TAB TABLET PO SCH (08:49)
[2019-12-21] MEDS: Loratadine 10 MG TABLET PO SCH (08:49)
[2019-12-21] MEDS: FLUoxetine 20 MG CAPSULE PO SCH (08:49)
[2019-12-21] MEDS: Gabapentin 300 MG CAPSULE PO SCH ×4 (08:50→20:37)
[2019-12-21] MEDS: Topiramate 25 MG TABLET PO SCH (08:50)
[2019-12-21] MEDS: Furosemide 20 MG TABLET PO SCH ×2 (08:50→16:56)
[2019-12-21] MEDS: Budesonide/Formoterol 160/4.5 1 PUFF INH IH SCH ×2 (08:55→22:00)
[2019-12-21] MEDS: clonazePAM 1 MG TABLET PO PRN ×2 (08:59→20:37)
[2019-12-21] MEDS: Cholecalciferol (D-3) 1,000 UNIT (25MCG) TABLET PO SCH (09:44)
[2019-12-21] MEDS ORDERED: SUMAtriptan succinate 50 MG TABLET PO PRN (13:01)
[2019-12-21] MEDS: PRAZOSIN HCL 15 MG PO SCH (20:36)
[2019-12-21] MEDS: CarBAMazepine XR (12 hr) 100 MG TAB PO SCH (20:36)
[2019-12-21] MEDS ORDERED: QUEtiapine Fumarate 300 MG TABLET PO SCH (21:00)
[2019-12-21] MEDS ORDERED: Topiramate 25 MG TABLET PO SCH (21:00)
[2019-12-22] MEDS: Nicotine 2 MG GUM BC PRN ×5 (03:36→15:03)
[2019-12-22] MEDS: *HR* HYDROcodone/Acet 10/325 mg TABLET PO PRN ×2 (03:36→12:42)
[2019-12-22] MEDS: hydrOXYzine pamoate 25 MG CAPSULE PO PRN (07:35)
[2019-12-22] MEDS: Furosemide 20 MG TABLET PO SCH ×2 (08:42→17:10)
[2019-12-22] MEDS: clonazePAM 1 MG TABLET PO PRN (08:44)
[2019-12-22] MEDS: FLUoxetine 20 MG CAPSULE PO SCH (08:44)
[2019-12-22] MEDS: Multivit/Ca/Min/Fe/FA 1 TAB TABLET PO SCH (08:45)
[2019-12-22] MEDS: Cholecalciferol (D-3) 1,000 UNIT (25MCG) TABLET PO SCH (08:45)
[2019-12-22] MEDS: Loratadine 10 MG TABLET PO SCH (08:46)
[2019-12-22] MEDS: Gabapentin 300 MG CAPSULE PO SCH ×3 (08:46→17:09)
[2019-12-22 09:35] VITALS: BP 94/65
[2019-12-22] MEDS: Budesonide/Formoterol 160/4.5 1 PUFF INH IH SCH (10:25)
== END 2019-12-22 17:30 | disposition home or self-care (01) | DRG 753 ==
LOC: 1ANU 11:57 → SUATTDRO 11:57
PROVIDERS: ADMIT Psychiatry & Neurology Psychiatry; ATTEND Psychiatry & Neurology Forensic Psychiatry

== ENCOUNTER 2020-12-23 11:07 | Inpatient (IN) ==
[2020-12-23] MEDS ORDERED: 0.9 % Sodium Chloride 1,000 ML IVC ONE (11:19)
[2020-12-23] MEDS ORDERED: Ipratropium/Albuterol Neb 3 ML IH ONE (11:19)
[2020-12-23] MEDS ORDERED: Isovue-370 500 ML BOTTLE IVP ONE (11:19)
[2020-12-23] MEDS ORDERED: methylPREDNISolone 125 MG/2 ML VIAL IVP ONE (11:19)
[2020-12-23 11:58] LABS: Basophils % 0.6 %; Eosinophils # 0.2 K/mcL (0.0-0.6); Eosinophils % 2.5 %; Hematocrit 38.3 % (35.3-44.9); Hemoglobin 11.8 g/dL (11.5-15.4); Immature Granulocytes % 0.3 % (0-4); Lymphocytes # 1.4 K/mcL (0.6-4.6); Lymphocytes % 21.8 %; Mean Corpuscular HGB Conc 30.8 g/dL (31.6-35.5); Mean Corpuscular Volume 103.8 fL (83.0-100.0); Mean Platelet Volume 9.8 fL (9.4-12.4); Monocytes # 0.5 K/mcL (0.0-1.3); Monocytes % 7.1 %; Neutrophils # 4.4 K/mcL (1.6-8.9); Platelet Count 214 K/mcL (140-400); Red Blood Count 3.69 M/mcL (3.82-4.97); Red Cell Distribution Width 13.4 % (11.5-14.5); Segmented Neutrophils % 67.7 %; White Blood Count 6.5 K/mcL (4.3-11.1)
[2020-12-23 12:22] LABS: BUN/Creatinine Ratio 30 (6-26); Blood Urea Nitrogen 21 mg/dL (8-23); Calcium 9.3 mg/dL (8.6-10.3); Carbon Dioxide 29 mEq/L (23-29); Chloride 104 mEq/L (98-107); Glucose 138 mg/dL (70-105); Osmolality,Calculated 297 (280-300); Potassium 4.1 mEq/L (3.5-5.1); Sodium 141 mEq/L (136-145); Troponin I < 0.03 ng/mL (< 0.04); eGFR For African Americans > 60 (> 60); eGFR For Non-African Americans > 60 (> 60)
[2020-12-23] MEDS ORDERED: Piperacillin/Tazobactam 3.375 GM in Water for inj. (sterile) 20 ML IVP ONE (13:28)
[2020-12-23] MEDS ORDERED: Acetaminophen 325 MG TABLET PO ONE (13:42)
[2020-12-23] MEDS ORDERED: Ondansetron 4 MG/2 ML VIAL IVP PRN (15:03)
[2020-12-23] MEDS ORDERED: Melatonin 3 MG TABLET PO PRN (15:03)
[2020-12-23] MEDS ORDERED: Naloxone 0.4 MG/ML INJ IVP PRN (15:03)
[2020-12-23] MEDS ORDERED: Ipratropium/Albuterol Neb 3 ML IH PRN (16:16)
[2020-12-23] MEDS: Nystatin SUSP 5 ML UD.LIQ PO SCH ×2 (17:38→21:52)
[2020-12-23] MEDS: Gabapentin 300 MG CAPSULE PO SCH ×2 (17:38→20:06)
[2020-12-23] MEDS: *HR* OxyCODONE/APAP 5/325 TABLET PO PRN (17:39)
[2020-12-23] MEDS ORDERED: Rizatriptan Benzoate [Rizatriptan] 10 MG Tab.Rapdis PO PRN (19:22)
[2020-12-23] MEDS: clonazePAM 1 MG TABLET PO SCH (20:05)
[2020-12-23] MEDS: QUEtiapine Fumarate 300 MG TABLET PO SCH (20:06)
[2020-12-23] MEDS: Celecoxib 200 MG CAPSULE PO SCH (20:06)
[2020-12-23] MEDS: Budesonide/Formoterol 160/4.5 1 PUFF INH IH SCH (20:15)
[2020-12-23 20:23] LABS: Adenovirus Not Detected (Not Detect); Bordetella Pertussis Not Detected (Not Detect); Chlamydophila pneumoniae Not Detected (Not Detect); Coronavirus 229E Not Detected (Not Detect); Coronavirus HKU1 Not Detected (Not Detect); Coronavirus NL63 Not Detected (Not Detect); Coronavirus OC43 Not Detected (Not Detect); Human Metapneumovirus Not Detected (Not Detect); Human Rhinovirus/Enterovirus Not Detected (Not Detect); Influenza A Subtype 2009 H1 Not Detected (Not Detect); Influenza B Not Detected (Not Detect); Mycoplasma pneumoniae Not Detected (Not Detect); Parainfluenza Virus 1 Not Detected (Not Detect); Parainfluenza Virus 2 Not Detected (Not Detect); Parainfluenza Virus 3 Not Detected (Not Detect); Parainfluenza Virus 4 Not Detected (Not Detect); Respiratory Syncytial Virus Not Detected (Not Detect); SARS-CoV-2 Not Detected (Not Detect)
[2020-12-23] MEDS ORDERED: PRAZOSIN HCL 5 MG PO SCH (21:00)
[2020-12-23] MEDS: Furosemide 40 MG TABLET PO SCH (21:52)
[2020-12-23] MEDS: CarBAMazepine XR (12 hr) 100 MG TAB PO SCH (21:53)
[2020-12-24] MEDS: MethylPREDNISolone 40 MG/ML VIAL IVP SCH ×2 (00:14→07:43)
[2020-12-24] MEDS: Piperacillin/Tazobactam 3.375 GM in 0.9 % Sodium Chloride Mini Bag 100 ML IVPB SCH ×4 (00:15→20:22)
[2020-12-24] MEDS: *HR* OxyCODONE/APAP 5/325 TABLET PO PRN ×3 (01:32→17:36)
[2020-12-24] MEDS: *HR* Enoxaparin 40 MG/0.4 ML SYRINGE SQ SCH (05:12)
[2020-12-24 06:55] LABS: Basophils % 0.1 %; Hematocrit 40.1 % (35.3-44.9); Hemoglobin 12.5 g/dL (11.5-15.4); Immature Granulocytes % 0.5 % (0-4); Lymphocytes # 0.6 K/mcL (0.6-4.6); Lymphocytes % 6.7 %; Mean Corpuscular HGB Conc 31.2 g/dL (31.6-35.5); Mean Corpuscular Hemoglobin 31.5 pg (28.0-33.3); Mean Platelet Volume 9.8 fL (9.4-12.4); Monocytes # 0.2 K/mcL (0.0-1.3); Monocytes % 2.3 %; Neutrophils # 7.7 K/mcL (1.6-8.9); Platelet Count 252 K/mcL (140-400); Red Blood Count 3.97 M/mcL (3.82-4.97); Red Cell Distribution Width 13.1 % (11.5-14.5); Segmented Neutrophils % 90.4 %; White Blood Count 8.6 K/mcL (4.3-11.1)
[2020-12-24 07:14] LABS: Alanine Aminotransferase 62 Units/L (7-52); Albumin 4.1 g/dL (3.5-5.7); Albumin/Globulin Ratio 1.4 (1.1-2.2); Alkaline Phosphatase 116 Units/L (34-104); Aspartate Amino Transferase 35 Units/L (13-39); BUN/Creatinine Ratio 25 (6-26); Bilirubin,Total 0.2 mg/dL (0.3-1.0); Blood Urea Nitrogen 21 mg/dL (8-23); Calcium 9.6 mg/dL (8.6-10.3); Carbon Dioxide 30 mEq/L (23-29); Chloride 100 mEq/L (98-107); Globulin 2.9 g/dL (2.4-3.5); Glucose 289 mg/dL (70-105); Osmolality,Calculated 302 (280-300); Potassium 4.5 mEq/L (3.5-5.1); Sodium 139 mEq/L (136-145); eGFR For African Americans > 60 (> 60); eGFR For Non-African Americans > 60 (> 60)
[2020-12-24] MEDS: clonazePAM 1 MG TABLET PO SCH ×2 (07:42→20:15)
[2020-12-24] MEDS: Gabapentin 300 MG CAPSULE PO SCH ×4 (07:42→20:17)
[2020-12-24] MEDS: Furosemide 40 MG TABLET PO SCH ×2 (07:43→16:08)
[2020-12-24] MEDS: Celecoxib 200 MG CAPSULE PO SCH ×2 (07:43→20:16)
[2020-12-24] MEDS: Loratadine 10 MG TABLET PO SCH (07:43)
[2020-12-24] MEDS: Nystatin SUSP 5 ML UD.LIQ PO SCH ×4 (07:43→20:15)
[2020-12-24] MEDS: Brexpiprazole [Rexulti] 1 MG Tablet PO SCH (07:56)
[2020-12-24] MEDS ORDERED: NON-FORMULARY MEDICATION 1 EACH EACH (Omeprazole [Prilosec] 40 MG Capsule.Dr) PO SCH (09:00)
[2020-12-24] MEDS: Budesonide/Formoterol 160/4.5 1 PUFF INH IH SCH ×2 (10:55→19:58)
[2020-12-24] MEDS: Azithromycin 500 MG in 0.9 % Sodium Chloride 250 ML IVPB SCH ×2 (16:09)
[2020-12-24] MEDS: QUEtiapine Fumarate 300 MG TABLET PO SCH (20:16)
[2020-12-24] MEDS: CarBAMazepine XR (12 hr) 100 MG TAB PO SCH (20:16)
[2020-12-25] MEDS: *HR* Enoxaparin 40 MG/0.4 ML SYRINGE SQ SCH (05:22)
[2020-12-25] MEDS: Piperacillin/Tazobactam 3.375 GM in 0.9 % Sodium Chloride Mini Bag 100 ML IVPB SCH (06:27)
[2020-12-25] MEDS: *HR* OxyCODONE/APAP 5/325 TABLET PO PRN (06:43)
[2020-12-25] MEDS: Budesonide/Formoterol 160/4.5 1 PUFF INH IH SCH (07:34)
[2020-12-25 08:36] VITALS: O2SAT 96
[2020-12-25] MEDS ORDERED: predniSONE 20 MG TABLET PO SCH (09:00)
[2020-12-25] MEDS: Gabapentin 300 MG CAPSULE PO SCH (09:46)
[2020-12-25] MEDS: clonazePAM 1 MG TABLET PO SCH (09:47)
[2020-12-25] MEDS: Celecoxib 200 MG CAPSULE PO SCH (09:47)
[2020-12-25] MEDS: Loratadine 10 MG TABLET PO SCH (09:47)
[2020-12-25] MEDS: Furosemide 40 MG TABLET PO SCH (09:47)
[2020-12-25] MEDS: Nystatin SUSP 5 ML UD.LIQ PO SCH (09:47)
[2020-12-25] MEDS: Brexpiprazole [Rexulti] 1 MG Tablet PO SCH (09:50)
[2020-12-25 12:28] VITALS: BP 105/66; PULSE 102; TEMP 98.5
== END 2020-12-25 15:16 | disposition home or self-care (01) | DRG 720 ==
LOC: 3NENU 11:07 → EMEROOARM 11:07 → SUATTDRO 14:08 → 3NENU 15:24
PROVIDERS: ADMIT Internal Medicine; ATTEND Internal Medicine

== ENCOUNTER 2021-09-26 13:19 | Inpatient (IN) ==
[2021-09-26] MEDS ORDERED: 0.9 % Sodium Chloride 1,000 ML IVC ONE (13:54)
[2021-09-26 15:23] LABS: Influenza A PCR Negative (Negative); Influenza B PCR Negative (Negative); Resp. Syncytial Virus PCR Negative (Negative)
[2021-09-26 15:44] LABS: Bilirubin,Urine Negative (Negative); Blood,Urine Negative (Negative); Clarity,Urine Clear (Clear); Color,Urine Yellow (Yellow); Glucose,Urine (UA) Normal (Normal); Hyaline Casts,Urine Many per lpf (None Seen); Ketones,Urine Negative (Negative); Leukocyte Esterase,Urine Trace (Negative); Mucus,Urine Few per lpf (None-Few); Nitrite,Urine Negative (Negative); PH,Urine 5.5 pH Units (5.0-8.0); Protein,Urine 30 mg/dL (Neg-Trace); RBC,Urine 0-3 per hpf (0-3); Renal Epithelial Cells,Urine Few per hpf (None-Few); Specific Gravity,Urine 1.018 (1.010-1.025); Squamous Epithelial Cell,Urine Few per hpf (None-Few); Transitional Epi Cells,Urine Few per hpf (None-Few); Urobilinogen,Urine Normal (Normal); WBC,Urine 0-3 per hpf (0-3)
[2021-09-26 15:52] LABS: SARS-CoV-2 by PCR (In House) Negative (Negative)
[2021-09-26] MEDS ORDERED: *HR* OxyCODONE/APAP 5/325 TABLET PO STA (16:32)
[2021-09-26 17:04] LABS: Basophils % 0.3 %; Eosinophils % 0.1 %; Hematocrit 40.3 % (35.3-44.9); Hemoglobin 12.7 g/dL (11.5-15.4); Immature Granulocytes % 0.6 % (0-4); Lymphocytes # 1.1 K/mcL (0.6-4.6); Lymphocytes % 9.9 %; Mean Corpuscular HGB Conc 31.5 g/dL (31.6-35.5); Mean Corpuscular Hemoglobin 27.2 pg (28.0-33.3); Mean Corpuscular Volume 86.3 fL (83.0-100.0); Mean Platelet Volume 10.1 fL (9.4-12.4); Monocytes # 0.7 K/mcL (0.0-1.3); Monocytes % 6.4 %; Neutrophils # 9.6 K/mcL (1.6-8.9); Platelet Count 213 K/mcL (140-400); Red Blood Count 4.67 M/mcL (3.82-4.97); Red Cell Distribution Width 13.9 % (11.5-14.5); Segmented Neutrophils % 82.7 %; White Blood Count 11.6 K/mcL (4.3-11.1)
[2021-09-26 17:07] LABS: VBG HCO3 27 mEq/L (21-27); VBG PCO2 62 mmHg (41-51); VBG PH 7.25 pH Units (7.32-7.42); VBG PO2 82 mmHg (25-50)
[2021-09-26 17:14] LABS: Amphetamine Screen,Urine Negative ng/mL (Cutoff=1000); Barbiturate Screen,Urine Negative ng/mL (Cutoff=200); Benzodiazepines Screen,Urine Positive ng/mL (Cutoff=200); Cannabinoid Screen,Urine Negative ng/mL (Cutoff = 50); Cocaine Screen,Urine Negative ng/mL (Cutoff= 300); Opiate Screen,Urine Positive ng/mL (Cutoff=300); Phencyclidine Screen,Urine Negative ng/mL (Cutoff=25)
[2021-09-26] MEDS ORDERED: Naloxone 0.4 MG/ML INJ IVP ONE (17:19)
[2021-09-26 18:06] LABS: Acetaminophen < 10 mcg/mL (10-20); Alanine Aminotransferase 39 Units/L (7-52); Albumin 4.3 g/dL (3.5-5.7); Albumin/Globulin Ratio 1.3 (1.1-2.2); Alkaline Phosphatase 141 Units/L (34-104); Aspartate Amino Transferase 42 Units/L (13-39); BUN/Creatinine Ratio 20 (6-26); Bilirubin,Direct 0.1 mg/dL (0.0-0.2); Bilirubin,Indirect 0.4 mg/dL (0.0-1.0); Bilirubin,Total 0.5 mg/dL (0.3-1.0); Blood Urea Nitrogen 30 mg/dL (8-23); Carbon Dioxide 23 mEq/L (23-29); Chloride 103 mEq/L (98-107); Ethanol < 10 mg/dL (Less than 10); Globulin 3.2 g/dL (2.4-3.5); Glucose 142 mg/dL (70-105); Osmolality,Calculated 295 (280-300); Potassium 4.8 mEq/L (3.5-5.1); Salicylate < 2.5 mg/dL (15.0-30.0); Sodium 138 mEq/L (136-145); Total Protein 7.5 g/dL (6.4-8.9); Troponin I < 0.03 ng/mL (< 0.04); eGFR For African Americans 42 (> 60); eGFR For Non-African Americans 35 (> 60)
[2021-09-26] MEDS ORDERED: Naloxone 0.4 MG/ML INJ IVP PRN (19:56)
[2021-09-26] MEDS ORDERED: Ondansetron 4 MG/2 ML VIAL IVP PRN (19:56)
[2021-09-26] MEDS: Acetaminophen 325 MG TABLET PO PRN (21:23)
[2021-09-26] MEDS: 0.9 % Sodium Chloride 1,000 ML IVC SCH (21:24)
[2021-09-26] MEDS ORDERED: Ipratropium/Albuterol Neb 3 ML IH PRN (21:47)
[2021-09-26] MEDS ORDERED: methylPREDNISolone 125 MG/2 ML VIAL IVP ONE (21:48)
[2021-09-26] MEDS: (Buprenorphine Hcl/Naloxone Hcl 8MG/2MG) SL SCH (22:51)
[2021-09-26] MEDS: BREXPIPRAZOLE 3 MG PO SCH (22:51)
[2021-09-26] MEDS: tiZANidine 4 MG TABLET PO PRN (22:54)
[2021-09-26] MEDS: *HR* OxyCODONE/APAP 5/325 TABLET PO PRN (22:54)
[2021-09-26] MEDS: QUEtiapine Fumarate 300 MG TABLET PO SCH (22:54)
[2021-09-26] MEDS: Azithromycin 500 MG in 0.9 % Sodium Chloride 250 ML IVPB SCH (23:07)
[2021-09-27] MEDS: 0.9 % Sodium Chloride 1,000 ML IVC SCH ×2 (05:14→18:45)
[2021-09-27] MEDS: *HR* OxyCODONE/APAP 5/325 TABLET PO PRN ×3 (05:14→23:07)
[2021-09-27] MEDS: MethylPREDNISolone 40 MG/ML VIAL IVP SCH ×2 (05:14→18:45)
[2021-09-27 05:56] LABS: Basophils % 0.3 %; Eosinophils % 0.1 %; Hematocrit 36.3 % (35.3-44.9); Hemoglobin 11.2 g/dL (11.5-15.4); Immature Granulocytes % 0.6 % (0-4); Lymphocytes # 0.6 K/mcL (0.6-4.6); Lymphocytes % 7.8 %; Mean Corpuscular HGB Conc 30.9 g/dL (31.6-35.5); Mean Corpuscular Hemoglobin 26.8 pg (28.0-33.3); Mean Corpuscular Volume 86.8 fL (83.0-100.0); Mean Platelet Volume 10.4 fL (9.4-12.4); Monocytes # 0.1 K/mcL (0.0-1.3); Monocytes % 1.3 %; Neutrophils # 6.3 K/mcL (1.6-8.9); Platelet Count 184 K/mcL (140-400); Red Blood Count 4.18 M/mcL (3.82-4.97); Red Cell Distribution Width 14.1 % (11.5-14.5); Segmented Neutrophils % 89.9 %
[2021-09-27 06:25] LABS: Alanine Aminotransferase 29 Units/L (7-52); Albumin/Globulin Ratio 1.5 (1.1-2.2); Alkaline Phosphatase 118 Units/L (34-104); Aspartate Amino Transferase 20 Units/L (13-39); BUN/Creatinine Ratio 26 (6-26); Bilirubin,Direct 0.1 mg/dL (0.0-0.2); Bilirubin,Indirect 0.1 mg/dL (0.0-1.0); Bilirubin,Total 0.2 mg/dL (0.3-1.0); Blood Urea Nitrogen 28 mg/dL (8-23); Calcium 8.8 mg/dL (8.6-10.3); Carbon Dioxide 24 mEq/L (23-29); Chloride 108 mEq/L (98-107); Globulin 2.6 g/dL (2.4-3.5); Glucose 244 mg/dL (70-105); Magnesium 1.7 mg/dL (1.6-2.6); Osmolality,Calculated 304 (280-300); Phosphorous 2.7 mg/dL (2.7-4.5); Potassium 4.9 mEq/L (3.5-5.1); Sodium 140 mEq/L (136-145); Total Protein 6.6 g/dL (6.4-8.9); Troponin I < 0.03 ng/mL (< 0.04); eGFR For African Americans > 60 (> 60); eGFR For Non-African Americans 51 (> 60)
[2021-09-27 06:31] LABS: Thyroid Stimulating Hormone 0.181 mcIU/mL (0.340-5.600)
[2021-09-27] MEDS ORDERED: *HR* Enoxaparin 30 MG/0.3 ML SYRINGE SQ SCH (09:00)
[2021-09-27] MEDS: Azithromycin 500 MG in 0.9 % Sodium Chloride 250 ML IVPB SCH (09:05)
[2021-09-27] MEDS: clonazePAM 1 MG TABLET PO SCH ×2 (09:06→20:46)
[2021-09-27] MEDS: QUEtiapine Fumarate 100 MG TABLET PO SCH ×2 (09:07→15:03)
[2021-09-27] MEDS: Fluticasone Propionate Nasal 50 MCG/SPRAY BOTTLE NS SCH (09:07)
[2021-09-27] MEDS: Aspirin 81 MG TAB.CHEW PO SCH ×2 (09:07→20:46)
[2021-09-27] MEDS: Gabapentin 300 MG CAPSULE PO SCH ×3 (09:07→20:46)
[2021-09-27] MEDS: (Buprenorphine Hcl/Naloxone Hcl 8MG/2MG) SL SCH ×2 (09:08→23:06)
[2021-09-27] MEDS: (Brexpiprazole [Rexulti] 1 MG Tablet) PO SCH (09:08)
[2021-09-27] MEDS: Tiotropium 10 INH DOSE IH SCH (10:09)
[2021-09-27] MEDS: QUEtiapine Fumarate 300 MG TABLET PO SCH (20:46)
[2021-09-27] MEDS: CarBAMazepine XR (12 hr) 100 MG TAB PO SCH (20:46)
[2021-09-27] MEDS: BREXPIPRAZOLE 3 MG PO SCH (23:06)
[2021-09-28] MEDS: tiZANidine 4 MG TABLET PO PRN (03:19)
[2021-09-28] MEDS: 0.9 % Sodium Chloride 1,000 ML IVC SCH ×4 (03:20→22:39)
[2021-09-28 05:03] LABS: Adenovirus Not Detected (Not Detect); Bordetella Pertussis Not Detected (Not Detect); Chlamydophila pneumoniae Not Detected (Not Detect); Coronavirus 229E Not Detected (Not Detect); Coronavirus HKU1 Not Detected (Not Detect); Coronavirus NL63 Not Detected (Not Detect); Coronavirus OC43 Not Detected (Not Detect); Human Metapneumovirus Not Detected (Not Detect); Human Rhinovirus/Enterovirus Not Detected (Not Detect); Influenza A Subtype 2009 H1 Not Detected (Not Detect); Influenza B Not Detected (Not Detect); Mycoplasma pneumoniae Not Detected (Not Detect); Parainfluenza Virus 1 Not Detected (Not Detect); Parainfluenza Virus 2 Not Detected (Not Detect); Parainfluenza Virus 3 Not Detected (Not Detect); Parainfluenza Virus 4 Not Detected (Not Detect); Respiratory Syncytial Virus Not Detected (Not Detect); SARS-CoV-2 Not Detected (Not Detect)
[2021-09-28] MEDS ORDERED: *HR* Enoxaparin 40 MG/0.4 ML SYRINGE SQ SCH (06:00)
[2021-09-28 06:12] LABS: Basophils % 0.1 %; Eosinophils % 0.1 %; Hematocrit 34.5 % (35.3-44.9); Hemoglobin 10.2 g/dL (11.5-15.4); Immature Granulocytes % 0.6 % (0-4); Lymphocytes % 14.6 %; Mean Corpuscular HGB Conc 29.6 g/dL (31.6-35.5); Mean Corpuscular Hemoglobin 27.3 pg (28.0-33.3); Mean Corpuscular Volume 92.2 fL (83.0-100.0); Mean Platelet Volume 10.5 fL (9.4-12.4); Monocytes # 0.5 K/mcL (0.0-1.3); Monocytes % 6.6 %; Neutrophils # 5.5 K/mcL (1.6-8.9); Platelet Count 161 K/mcL (140-400); Red Blood Count 3.74 M/mcL (3.82-4.97); Red Cell Distribution Width 14.4 % (11.5-14.5); White Blood Count 7.1 K/mcL (4.3-11.1)
[2021-09-28] MEDS: *HR* OxyCODONE/APAP 5/325 TABLET PO PRN ×3 (06:29→19:44)
[2021-09-28] MEDS: MethylPREDNISolone 40 MG/ML VIAL IVP SCH ×3 (06:31→23:13)
[2021-09-28 06:46] LABS: BUN/Creatinine Ratio 27 (6-26); Blood Urea Nitrogen 20 mg/dL (8-23); Calcium 8.3 mg/dL (8.6-10.3); Carbon Dioxide 20 mEq/L (23-29); Chloride 112 mEq/L (98-107); Glucose 203 mg/dL (70-105); Magnesium 1.6 mg/dL (1.6-2.6); Osmolality,Calculated 300 (280-300); Phosphorous 2.5 mg/dL (2.7-4.5); Potassium 5.2 mEq/L (3.5-5.1); Sodium 141 mEq/L (136-145); eGFR For African Americans > 60 (> 60); eGFR For Non-African Americans > 60 (> 60)
[2021-09-28] MEDS: clonazePAM 1 MG TABLET PO SCH ×2 (08:31→19:44)
[2021-09-28] MEDS: (Brexpiprazole [Rexulti] 1 MG Tablet) PO SCH (08:35)
[2021-09-28] MEDS: Tiotropium 10 INH DOSE IH SCH (09:40)
[2021-09-28] MEDS: Aspirin 81 MG TAB.CHEW PO SCH ×2 (11:19→19:44)
[2021-09-28] MEDS: QUEtiapine Fumarate 100 MG TABLET PO SCH ×2 (11:19→16:47)
[2021-09-28] MEDS: Gabapentin 300 MG CAPSULE PO SCH ×3 (11:19→19:44)
[2021-09-28] MEDS: *HR* Enoxaparin 40 MG/0.4 ML SYRINGE SQ SCH (11:22)
[2021-09-28] MEDS: Azithromycin 500 MG in 0.9 % Sodium Chloride 250 ML IVPB SCH (13:24)
[2021-09-28] MEDS: Fluticasone Propionate Nasal 50 MCG/SPRAY BOTTLE NS SCH (13:31)
[2021-09-28] MEDS: (Buprenorphine Hcl/Naloxone Hcl 8MG/2MG) SL SCH (13:31)
[2021-09-28] MEDS: CarBAMazepine XR (12 hr) 100 MG TAB PO SCH (19:44)
[2021-09-28] MEDS: QUEtiapine Fumarate 300 MG TABLET PO SCH (19:44)
[2021-09-28] MEDS: BREXPIPRAZOLE 3 MG PO SCH (19:45)
[2021-09-29] MEDS ORDERED: Melatonin 3 MG TABLET PO PRN (00:32)
[2021-09-29] MEDS: Acetaminophen 325 MG TABLET PO PRN ×2 (00:36→05:41)
[2021-09-29] MEDS: *HR* OxyCODONE/APAP 5/325 TABLET PO PRN ×2 (01:29→10:25)
[2021-09-29] MEDS: tiZANidine 4 MG TABLET PO PRN (01:30)
[2021-09-29 03:28] LABS: BUN/Creatinine Ratio 19 (6-26); Blood Urea Nitrogen 14 mg/dL (8-23); Calcium 8.4 mg/dL (8.6-10.3); Carbon Dioxide 27 mEq/L (23-29); Chloride 108 mEq/L (98-107); Glucose 353 mg/dL (70-105); Magnesium 1.4 mg/dL (1.6-2.6); Osmolality,Calculated 303 (280-300); Phosphorous 2.5 mg/dL (2.7-4.5); Potassium 4.8 mEq/L (3.5-5.1); Sodium 139 mEq/L (136-145); eGFR For African Americans > 60 (> 60); eGFR For Non-African Americans > 60 (> 60)
[2021-09-29 03:32] LABS: Basophils % 0.3 %; Hematocrit 32.3 % (35.3-44.9); Hemoglobin 9.7 g/dL (11.5-15.4); Immature Granulocytes % 1.3 % (0-4); Lymphocytes # 0.7 K/mcL (0.6-4.6); Lymphocytes % 11.1 %; Mean Corpuscular Hemoglobin 26.2 pg (28.0-33.3); Mean Corpuscular Volume 87.3 fL (83.0-100.0); Mean Platelet Volume 10.3 fL (9.4-12.4); Monocytes # 0.2 K/mcL (0.0-1.3); Monocytes % 3.6 %; Neutrophils # 5.1 K/mcL (1.6-8.9); Platelet Count 190 K/mcL (140-400); Red Cell Distribution Width 14.1 % (11.5-14.5); Segmented Neutrophils % 83.7 %; White Blood Count 6.1 K/mcL (4.3-11.1)
[2021-09-29] MEDS: 0.9 % Sodium Chloride 1,000 ML IVC SCH ×3 (05:40→13:33)
[2021-09-29] MEDS: Tiotropium 10 INH DOSE IH SCH (08:16)
[2021-09-29 08:34] VITALS: O2SAT 95
[2021-09-29] MEDS: clonazePAM 1 MG TABLET PO SCH (09:10)
[2021-09-29] MEDS: Gabapentin 300 MG CAPSULE PO SCH (09:10)
[2021-09-29] MEDS: QUEtiapine Fumarate 100 MG TABLET PO SCH (09:10)
[2021-09-29] MEDS: *HR* Enoxaparin 40 MG/0.4 ML SYRINGE SQ SCH (09:11)
[2021-09-29] MEDS: Aspirin 81 MG TAB.CHEW PO SCH (09:11)
[2021-09-29] MEDS: Azithromycin 500 MG in 0.9 % Sodium Chloride 250 ML IVPB SCH (09:12)
[2021-09-29] MEDS: MethylPREDNISolone 40 MG/ML VIAL IVP SCH (09:13)
[2021-09-29] MEDS: (Brexpiprazole [Rexulti] 1 MG Tablet) PO SCH (09:18)
[2021-09-29] MEDS: Fluticasone Propionate Nasal 50 MCG/SPRAY BOTTLE NS SCH (09:54)
[2021-09-29 10:46] VITALS: BP 161/92; PULSE 75; TEMP 98.6
[2021-09-29 13:53] LABS: Estimated Average Glucose 140 mg/dl; Hemoglobin A1C 6.5 %
== END 2021-09-29 14:38 | disposition left against medical advice (07) | DRG 469 ==
LOC: EMEROOARM 13:19 → 3NENU 13:19 → SUATTDRO 19:54 → 3NENU 20:45
PROVIDERS: ADMIT Student in an Organized Health Care Education/Training Program; ATTEND Internal Medicine